=== PATIENT | male | born 1960 | race Caucasian/White ===

== ENCOUNTER 2021-01-21 18:13 | Inpatient (IN) | payer BC ==
[2021-01-21] MEDS ORDERED: Sodium Chloride 0.9% 1,000 ML IV SCH (19:45)
--- NOTE | 2021-01-21 20:59 | CR ---
Chest: Portable view of the chest was obtained. Comparison: No prior chest imaging is available. Patchy areas of increased density are seen within both lungs, worse on the left side. Heart size and mediastinum are within normal limits for portable technique. No acute osseous finding is appreciated. Impression: 1. Increased density on both sides of the chest, worse on the left side. These findings are most likely due to bilateral COVID pneumonia. Diagnostic code #3
[2021-01-21] MEDS ORDERED: methylPREDNISolone Sodium Succinate 125 MG/2 ML SDV IVPUSH ONE (21:49)
[2021-01-21] MEDS ORDERED: Azithromycin 500 MG in Sodium Chloride 0.9% 250 ML IV SCH (22:00)
[2021-01-21] MEDS ORDERED: cefTRIAXone 1 GM in Sodium Chloride 0.9% 100 ML IV SCH (22:00)
[2021-01-21] MEDS ORDERED: Sodium Chloride 0.9% 100 ML ONE (22:03)
--- NOTE | 2021-01-21 22:06 | EDM.PDOC ---
ED HPI GENERAL MEDICAL PROBLEM - General Chief Complaint: Respiratory Problem Stated Complaint: COVID + LOW OXYGEN,SOB Time Seen by Provider: 01/21/21 19:11 Source of Information: Reports: Patient History Limitations: Reports: No Limitations - History of Present Illness INITIAL COMMENTS - FREE TEXT/NARRATIVE: The patient tested positive for Covid by swab about 9 days ago. He has not had any troubling symptoms or further evaluation or treatment. He has had gradual worsening of shortness of breath and came to the emergency department today no fever had been noted. There are no significant risk factors. Patient is hypertensive. He did smoke cigarettes in the remote past. He apparently has some prostate issue but he is sure that it is not cancer. - Related Data Allergies Allergy/AdvReac Type Severity Reaction Status Date / Time No Known Allergies Allergy Verified 01/21/21 18:37 Home Meds: Home Meds FLUoxetine [PROzac] 20 mg PO DAILY 01/21/21 [History] Tamsulosin [Flomax] 1 tab PO DAILY 01/21/21 [History] amLODIPine [Norvasc] 10 mg PO DAILY 01/21/21 [History] atorvaSTATin [Lipitor] 1 tab PO DAILY 01/21/21 [History] Past Medical History Cardiovascular History: Reports: High Cholesterol, Hypertension Genitourinary History: Reports: Prostate Disorder - Infectious Disease History Infectious Disease History: Reports: Novel Coronavirus - Past Surgical History HEENT Surgical History: Reports: Naso-Sinus Surgery, Tonsillectomy GI Surgical History: Reports: Appendectomy Social & Family History - Tobacco Use Tobacco Use Status *Q: Current Every Day Tobacco User Years of Tobacco use: 40 Packs/Tins Daily: 0.5 Second Hand Smoke Exposure: No - Caffeine Use Caffeine Use: Reports: Coffee - Recreational Drug Use Recreational Drug Use: No ED ROS GENERAL - Review of Systems Review Of Systems: Comprehensive ROS is negative, except as noted in HPI. ED EXAM, GENERAL - Physical Exam Exam: See Below Free Text/Narrative:: Patient is alert and in no acute distress on exam. He does appear a bit wan however. Skin is warm and dry with normal turgor. Head normocephalic atraumatic. EOMI PERRLA. ENT grossly normal. Neck is supple without jugular venous distention. Lungs bilateral breath sounds which are a bit diminished and coarse. Heart is regular normal rate. Abdomen is soft and nontender. There is no peripheral edema cyanosis or clubbing of the digits. Neurologically the patient is grossly intact with fluent speech and no motor or sensory deficit. His mood and affect are normal. #1 Interpretation EKG Date: 01/21/21 Time: 19:40 Rate (Beats/Min): 81 [place]: Normal P-Wave: Present QRS: Normal ST-T: Other (flipped T waves in III, F V3 V4 and V5.) QT: Normal EKG Interpretation Comments: no acute ischemic change Course - Vital Signs Text/Narrative:: The patient is hypoxemic. Chest x-ray suggestive of Covid pneumonia. Discussed fully with patient. Admission is recommended. Patient readily agrees. Presented to Dr. Sandy the hospitalist. Patient is to be admitted and bridge orders are written. Solu-Medrol, Rocephin, Zithromax initiated in ER. Last Recorded V/S: Last Vital Signs Temp 36.3 C 01/21/21 18:34 Pulse 85 01/21/21 18:34 Resp 18 01/21/21 18:34 BP 150/80 H 01/21/21 18:34 Pulse Ox 90 L 01/21/21 20:13 - Orders/Labs/Meds Orders: Active Orders 24 hr Category Date Time Status EKG Documentation Completion [RC] STAT Care 01/21/21 19:33 Active Oxygen Therapy, ED [RC] ASDIRECTED Care 01/21/21 19:36 Active CULTURE BLOOD [BC] Stat Lab 01/21/21 20:04 Received CULTURE BLOOD [BC] Stat Lab 01/21/21 20:14 Received Azithromycin [Zithromax] 500 mg Med 01/21/21 22:00 Active Sodium Chloride 0.9% [Normal Saline (AdvBag)] 250 ml IV Q24H Sodium Chloride 0.9% [Normal Saline] 1,000 ml Med 01/21/21 19:45 Active IV ASDIRECTED cefTRIAXone [Rocephin] 1 gm Med 01/21/21 22:00 Active Sodium Chloride 0.9% [Normal Saline] 100 ml IV Q24H Blood Culture x2 Reflex Set [OM.PC] Stat Oth 01/21/21 19:33 Ordered Medication Orders Sodium Chloride (Normal Saline) 1,000 mls @ 100 mls/hr IV ASDIRECTED ANNABEL Last Admin: 01/21/21 19:52 Dose: 100 mls/hr Documented by: THANH Ceftriaxone Sodium 1 gm/ (Sodium Chloride) 100 mls @ 200 mls/hr IV Q24H ANNABEL Azithromycin 500 mg/ Sodium (Chloride) 250 mls @ 250 mls/hr IV Q24H ANNABEL Labs: Laboratory Tests 01/21/21 01/21/21 01/21/21 Range/Units 19:02 19:02 19:02 WBC 6.28 (4.23-9.07) K/mm3 RBC 5.12 (4.63-6.08) M/mm3 Hgb 14.3 (13.7-17.5) gm/dl Hct 42.6 (40.1-51.0) % MCV 83.2 (79.0-92.2) fl MCH 27.9 (25.7-32.2) pg MCHC 33.6 (32.2-35.5) g/dl RDW Std Deviation 39.7 (35.1-43.9) fL Plt Count 209 (163-337) K/mm3 MPV 9.6 (9.4-12.3) fl Neutrophils % (Manual) 79 H (40-60) % Band Neutrophils % 0 (0-10) % Lymphocytes % (Manual) 18 L (20-40) % Atypical Lymphs % 0 % Monocytes % (Manual) 3 (2-10) % Eosinophils % (Manual) 0 L (0.8-7.0) % Basophils % (Manual) 0 L (0.2-1.2) Platelet Estimate Adequate RBC Morph Comment Normal D-Dimer, Quantitative 0.51 H (0.19-0.50) mg/L Puncture Site ABG pH (7.35-7.45) ABG pCO2 (35.0-45.0) mmHg ABG pO2 (80.0-100.0) mmHg ABG HCO3 (22.0-26.0) meq/L ABG O2 Saturation (96.0-97.0) % ABG Base Excess (-2-2.0) Moses Test A-a Gradient mmHg O2 Delivery Device Oxygen Flow Rate FiO2 (21.00-100.00) % Sodium 140 (136-145) mEq/L Potassium 3.1 L (3.5-5.1) mEq/L Chloride 102 (98-107) mEq/L Carbon Dioxide 24 (21-32) mEq/L Anion Gap 17.1 H (5-15) BUN 22 H (7-18) mg/dL Creatinine 1.1 (0.7-1.3) mg/dL Est Cr Clr Drug Dosing 72.82 mL/min Estimated GFR (MDRD) > 60 (>60) mL/min BUN/Creatinine Ratio 20.0 H (14-18) Glucose 113 (80-115) mg/dL Calcium 8.7 (8.5-10.1) mg/dL Magnesium 2.0 (1.8-2.4) mg/dl Total Bilirubin 0.7 (0.2-1.0) mg/dL AST 75 H (15-37) U/L ALT 86 H (16-63) U/L Alkaline Phosphatase 51 (46-116) U/L Creatine Kinase 714 H (39-308) U/L Troponin I < 0.017 (0.00-0.056) ng/mL NT-Pro-B Natriuret Pep (0-125) pg/mL Total Protein 7.2 (6.4-8.2) g/dl Albumin 3.1 L (3.4-5.0) g/dl Globulin 4.1 gm/dL Albumin/Globulin Ratio 0.8 L (1-2) Lipase 82 (73-393) U/L TSH 3rd Generation 3.350 (0.358-3.74) uIU/mL Urine Color (Yellow) Urine Appearance (Clear) Urine pH (5.0-8.0) Ur Specific [place] (1.005-1.030) Urine Protein (Negative) Urine Glucose (UA) (Negative) Urine Ketones (Negative) Urine Occult Blood (Negative) Urine Nitrite (Negative) Urine Bilirubin (Negative) Urine Urobilinogen (0.2-1.0) Ur Leukocyte Esterase (Negative) U Hyaline Cast (Auto) (0-5) /lpf Urine RBC (0-5) /hpf Urine WBC (0-5) /hpf Urine WBC Clumps (NOT SEEN) /hpf Ur Squamous Epith Cells (0-5) /hpf Ur Transition Epith Cell (0-5) Urine Bacteria (FEW) /hpf Urine Mucus (FEW) /hpf SARS-CoV-2 RNA (BRUCE) (NEGATIVE) 01/21/21 01/21/21 01/21/21 Range/Units 19:02 19:45 20:05 WBC (4.23-9.07) K/mm3 RBC (4.63-6.08) M/mm3 Hgb (13.7-17.5) gm/dl Hct (40.1-51.0) % MCV (79.0-92.2) fl MCH (25.7-32.2) pg MCHC (32.2-35.5) g/dl RDW Std Deviation (35.1-43.9) fL Plt Count (163-337) K/mm3 MPV (9.4-12.3) fl Neutrophils % (Manual) (40-60) % Band Neutrophils % (0-10) % Lymphocytes % (Manual) (20-40) % Atypical Lymphs % % Monocytes % (Manual) (2-10) % Eosinophils % (Manual) (0.8-7.0) % Basophils % (Manual) (0.2-1.2) Platelet Estimate RBC Morph Comment D-Dimer, Quantitative (0.19-0.50) mg/L Puncture Site Lt radial ABG pH 7.47 H (7.35-7.45) ABG pCO2 32.5 L (35.0-45.0) mmHg ABG pO2 49.0 L (80.0-100.0) mmHg ABG HCO3 23.5 (22.0-26.0) meq/L ABG O2 Saturation 85.2 L (96.0-97.0) % ABG Base Excess 1.0 (-2-2.0) Moses Test Positive A-a Gradient 60 mmHg O2 Delivery Device Room air Oxygen Flow Rate 0.0 FiO2 21.00 (21.00-100.00) % Sodium (136-145) mEq/L Potassium (3.5-5.1) mEq/L Chloride (98-107) mEq/L Carbon Dioxide (21-32) mEq/L Anion Gap (5-15) BUN (7-18) mg/dL Creatinine (0.7-1.3) mg/dL Est Cr Clr Drug Dosing mL/min Estimated GFR (MDRD) (>60) mL/min BUN/Creatinine Ratio (14-18) Glucose (80-115) mg/dL Calcium (8.5-10.1) mg/dL Magnesium (1.8-2.4) mg/dl Total Bilirubin (0.2-1.0) mg/dL AST (15-37) U/L ALT (16-63) U/L Alkaline Phosphatase (46-116) U/L Creatine Kinase (39-308) U/L Troponin I (0.00-0.056) ng/mL NT-Pro-B Natriuret Pep 57 (0-125) pg/mL Total Protein (6.4-8.2) g/dl Albumin (3.4-5.0) g/dl Globulin gm/dL Albumin/Globulin Ratio (1-2) Lipase (73-393) U/L TSH 3rd Generation (0.358-3.74) uIU/mL Urine Color (Yellow) Urine Appearance (Clear) Urine pH (5.0-8.0) Ur Specific [place] (1.005-1.030) Urine Protein (Negative) Urine Glucose (UA) (Negative) Urine Ketones (Negative) Urine Occult Blood (Negative) Urine Nitrite (Negative) Urine Bilirubin (Negative) Urine Urobilinogen (0.2-1.0) Ur Leukocyte Esterase (Negative) U Hyaline Cast (Auto) (0-5) /lpf Urine RBC (0-5) /hpf Urine WBC (0-5) /hpf Urine WBC Clumps (NOT SEEN) /hpf Ur Squamous Epith Cells (0-5) /hpf Ur Transition Epith Cell (0-5) Urine Bacteria (FEW) /hpf Urine Mucus (FEW) /hpf SARS-CoV-2 RNA (BRUCE) Positive H (NEGATIVE) 01/21/21 Range/Units 20:26 WBC (4.23-9.07) K/mm3 RBC (4.63-6.08) M/mm3 Hgb (13.7-17.5) gm/dl Hct (40.1-51.0) % MCV (79.0-92.2) fl MCH (25.7-32.2) pg MCHC (32.2-35.5) g/dl RDW Std Deviation (35.1-43.9) fL Plt Count (163-337) K/mm3 MPV (9.4-12.3) fl Neutrophils % (Manual) (40-60) % Band Neutrophils % (0-10) % Lymphocytes % (Manual) (20-40) % Atypical Lymphs % % Monocytes % (Manual) (2-10) % Eosinophils % (Manual) (0.8-7.0) % Basophils % (Manual) (0.2-1.2) Platelet Estimate RBC Morph Comment D-Dimer, Quantitative (0.19-0.50) mg/L Puncture Site ABG pH (7.35-7.45) ABG pCO2 (35.0-45.0) mmHg ABG pO2 (80.0-100.0) mmHg ABG HCO3 (22.0-26.0) meq/L ABG O2 Saturation (96.0-97.0) % ABG Base Excess (-2-2.0) Moses Test A-a Gradient mmHg O2 Delivery Device Oxygen Flow Rate FiO2 (21.00-100.00) % Sodium (136-145) mEq/L Potassium (3.5-5.1) mEq/L Chloride (98-107) mEq/L Carbon Dioxide (21-32) mEq/L Anion Gap (5-15) BUN (7-18) mg/dL Creatinine (0.7-1.3) mg/dL Est Cr Clr Drug Dosing mL/min Estimated GFR (MDRD) (>60) mL/min BUN/Creatinine Ratio (14-18) Glucose (80-115) mg/dL Calcium (8.5-10.1) mg/dL Magnesium (1.8-2.4) mg/dl Total Bilirubin (0.2-1.0) mg/dL AST (15-37) U/L ALT (16-63) U/L Alkaline Phosphatase (46-116) U/L Creatine Kinase (39-308) U/L Troponin I (0.00-0.056) ng/mL NT-Pro-B Natriuret Pep (0-125) pg/mL Total Protein (6.4-8.2) g/dl Albumin (3.4-5.0) g/dl Globulin gm/dL Albumin/Globulin Ratio (1-2) Lipase (73-393) U/L TSH 3rd Generation (0.358-3.74) uIU/mL Urine Color Yellow (Yellow) Urine Appearance Clear (Clear) Urine pH 6.0 (5.0-8.0) Ur Specific [place] 1.020 (1.005-1.030) Urine Protein 1+ H (Negative) Urine Glucose (UA) Negative (Negative) Urine Ketones Trace H (Negative) Urine Occult Blood Negative (Negative) Urine Nitrite Negative (Negative) Urine Bilirubin Negative (Negative) Urine Urobilinogen 0.2 (0.2-1.0) Ur Leukocyte Esterase Negative (Negative) U Hyaline Cast (Auto) 10-20 H (0-5) /lpf Urine RBC 0-5 (0-5) /hpf Urine WBC 10-20 H (0-5) /hpf Urine WBC Clumps Rare (NOT SEEN) /hpf Ur Squamous Epith Cells 0-5 (0-5) /hpf Ur Transition Epith Cell 0-5 (0-5) Urine Bacteria Many H (FEW) /hpf Urine Mucus Many H (FEW) /hpf SARS-CoV-2 RNA (BRUCE) (NEGATIVE) Meds: Medications Generic Name Dose Route Start Last Admin Trade Name Freq PRN Reason Stop Dose Admin Sodium Chloride 1,000 mls @ 100 mls/hr 01/21/21 19:45 01/21/21 19:52 Normal Saline IV 100 mls/hr ASDIRECTED ANNABEL Administration Ceftriaxone Sodium 1 gm/ 100 mls @ 200 mls/hr 01/21/21 22:00 Sodium Chloride IV Q24H ANNABEL Azithromycin 500 mg/ Sodium 250 mls @ 250 mls/hr 01/21/21 22:00 Chloride IV Q24H ANNABEL Discontinued Medications Generic Name Dose Route Start Last Admin Trade Name Freq PRN Reason Stop Dose Admin Methylprednisolone Sodium Succinate 125 mg 01/21/21 21:49 Methylprednisolone Sodium Succinate 125 Mg/2 Ml Sdv IVPUSH 01/21/21 21:50 ONETIME ONE Departure - Departure Time of Disposition: 22:09 Disposition: Admitted As Inpatient 65 Condition: Fair Clinical Impression: Pneumonia due to COVID-19 virus - Discharge Information Referrals: Jack Olsen MD [Primary Care Provider] - Sepsis Event Note (ED) - Evaluation Sepsis Screening Result: No Definite Risk - Focused Exam Vital Signs: Vital Signs Temp Pulse Resp BP Pulse Ox Pulse Ox 01/21/21 20:13 90 L 01/21/21 18:34 36.3 C 85 18 150/80 H 88 L - My Orders Last 24 Hours: My Active Orders 01/21/21 19:33 EKG Documentation Completion [RC] STAT Blood Culture x2 Reflex Set [OM.PC] Stat 01/21/21 19:36 Oxygen Therapy, ED [] ASDIRECTED 01/21/21 19:45 Sodium Chloride 0.9% [Normal Saline] 1,000 ml IV ASDIRECTED 01/21/21 20:04 CULTURE BLOOD [BC] Stat 01/21/21 20:14 CULTURE BLOOD [BC] Stat 01/21/21 22:00 Azithromycin [Zithromax] 500 mg Sodium Chloride 0.9% [Normal Saline (AdvBag)] 250 ml IV Q24H cefTRIAXone [Rocephin] 1 gm Sodium Chloride 0.9% [Normal Saline] 100 ml IV Q24H - Assessment/Plan Last 24 Hours: My Active Orders 01/21/21 19:33 EKG Documentation Completion [] STAT Blood Culture x2 Reflex Set [OM.PC] Stat 01/21/21 19:36 Oxygen Therapy, ED [] ASDIRECTED 01/21/21 19:45 Sodium Chloride 0.9% [Normal Saline] 1,000 ml IV ASDIRECTED 01/21/21 20:04 CULTURE BLOOD [BC] Stat 01/21/21 20:14 CULTURE BLOOD [BC] Stat 01/21/21 22:00 Azithromycin [Zithromax] 500 mg Sodium Chloride 0.9% [Normal Saline (AdvBag)] 250 ml IV Q24H cefTRIAXone [Rocephin] 1 gm Sodium Chloride 0.9% [Normal Saline] 100 ml IV Q24H
[2021-01-21] MEDS: cefTRIAXone 1 GM AdvVial IV ONE (22:11)
[2021-01-21] MEDS ORDERED: Acetaminophen 325 MG Tab PO PRN (22:36)
[2021-01-21] MEDS ORDERED: Ondansetron 4 MG/2 ML SDV IV PRN (22:36)
[2021-01-21] MEDS ORDERED: REMDESIVIR 200 MG in Sodium Chloride 0.9% 250 ML IV ONE (22:38)
[2021-01-21] MEDS: Dexamethasone 4 MG Tab PO SCH (23:28)
[2021-01-21] MEDS: Famotidine 20 MG Tab PO SCH (23:29)
[2021-01-21] MEDS: Aspirin 325 MG Tab.EC PO SCH (23:29)
[2021-01-21] MEDS: Cholecalciferol (Vitamin D3) 5,000 UNIT Cap PO SCH (23:29)
--- NOTE | 2021-01-22 07:23 | PCM.HP.2 ---
H&P History of Present Illness - General Date of Service: 01/22/21 Admit Problem/Dx: Admission Diagnosis/Problem Admission Diagnosis/Problem Hypoxia Source of Information: Patient, Old Records, Provider, RN, RN Notes Reviewed History Limitations: Reports: No Limitations - History of Present Illness Initial Comments - Free Text/Narative: This is a 60-year-old male who presents to ED in the evening of 01/21/2021 with concerns over low oxygen saturations and shortness of breath. Patient is accompanied by his who is having similar symptoms. Per the patient he was tested for Covid approximately 9 days prior and was positive. Since that time he is developed worsening shortness of breath. Denies any recent fevers or risk factors. He is hypertensive. Does have a history of cigarette smoking in the past and some prior prostate problems but no prostate cancer. In the ED twelve-lead EKG is obtained showing a sinus rhythm at 81 bpm with T wave inversion in 3, aVF, and V3 through V5. There is no ischemic change noted. Temp is 36.3. Pulse 85. Respirations 18. Blood pressure 150/80. Pulse ox 90% on room air. Labs are obtained: WBC is 6.28. Hemoglobin 14.3. Platelet 209,000. Neutrophils are elevated 79%. There is no bandemia. Sodium is 140. Potassium is low at 3.1. Chloride 102. Carbon oxide 24. Anion gap is 17.1. BUN is 22. Creatinine 1.1. GFR greater than 60. Glucose 113. Calcium 8.7. Magnesium 2.0. Total bilirubin 0.7. AST is 75, ALT 86, alkaline phosphatase 51. CK is 714. Troponin less than 0.017. Protein 7.2. Albumin 3.1. Lipase 82. TSH is 3.350. proBNP is 57. UA is obtained and is negative however 1+ protein, 10-20 hyaline casts, 10-20 WBCs, rare WBC clumps, many bacteria, and many urine mucus are noted. ABGs obtained in the left radial with a pH of 7.47. PCO2 of 32.5. PO2 of 49.0. HCO3 is 23.5. O2 saturations 85.2. Base excess 1.0. A-a gradient is 60. This is obtained on room air. Patient is given 125 mg Solu-Medrol, 1 g Rocephin, 500 mg azithromycin in the ED. Chest x-ray is obtained and an increased density on both sides of the chest is noted worse on the left. Most likely due to bilateral Covid pneumonia. Patient subsequently admitted to the medical floor on telemetry for management of his COVID-19 pneumonia. He carries a history of HLD, HTN, prostate disorder. He is a full code. His PCP is Dr. Lovelace. . - Related Data Allergies/Adverse Reactions: Allergies Allergy/AdvReac Type Severity Reaction Status Date / Time No Known Allergies Allergy Verified 01/21/21 18:37 Home Medications: Home Meds FLUoxetine [PROzac] 20 mg PO DAILY 01/21/21 [History] Tamsulosin [Flomax] 1 tab PO DAILY 01/21/21 [History] amLODIPine [Norvasc] 10 mg PO DAILY 01/21/21 [History] atorvaSTATin [Lipitor] 1 tab PO DAILY 01/21/21 [History] Past Medical History Cardiovascular History: Reports: High Cholesterol, Hypertension Gastrointestinal History: Reports: None Genitourinary History: Reports: Prostate Disorder Psychiatric History: Reports: Anxiety - Infectious Disease History Infectious Disease History: Reports: Chicken Pox, Novel Coronavirus - Past Surgical History HEENT Surgical History: Reports: Naso-Sinus Surgery, Tonsillectomy GI Surgical History: Reports: Appendectomy Male Surgical History: Reports: None Social & Family History - Family History Family Medical History: No Pertinent Family History - Tobacco Use Tobacco Use Status *Q: Former Tobacco User Years of Tobacco use: 1 Packs/Tins Daily: 0.5 Used Tobacco, but Quit: Yes Month/Year Tobacco Last Used: 1979 Second Hand Smoke Exposure: No - Caffeine Use Caffeine Use: Reports: Coffee Caffeine Use Comment: 8-10 cups of coffe per day - Alcohol Use Days Per Week of Alcohol Use: 1 Number of Drinks Per Day: 3 Total Drinks Per Week: 3 Date of Last Drink: 12/31/20 Time of Last Drink: 21:00 - Recreational Drug Use Recreational Drug Use: No H&P Review of Systems - Review of Systems: Review Of Systems: See Below General: Reports: Malaise, Weakness, Fatigue. Denies: Fever, Chills HEENT: Reports: No Symptoms. Denies: Headaches, Sore Throat Pulmonary: Reports: Shortness of Breath. Denies: Wheezing, Pleuritic Chest Pain, Cough, Sputum Cardiovascular: Reports: Dyspnea on Exertion. Denies: Chest Pain, Palpitations, Edema, Lightheadedness Gastrointestinal: Reports: No Symptoms. Denies: Abdominal Pain, Constipation, Diarrhea, Nausea, Vomiting Genitourinary: Reports: No Symptoms. Denies: Pain Musculoskeletal: Reports: No Symptoms Skin: Reports: No Symptoms. Denies: Cyanosis Psychiatric: Reports: No Symptoms. Denies: Confusion Neurological: Reports: No Symptoms. Denies: Pre-Existing Deficit, Difficulty Wa lking, Gait Disturbance Hematologic/Lymphatic: Reports: No Symptoms Immunologic: Reports: No Symptoms Exam - Exam Exam: See Below - Vital Signs Vital Signs: Last Vital Signs Temp 97.7 F 01/22/21 03:36 Pulse 72 01/22/21 03:36 Resp 18 01/22/21 03:36 BP 113/65 01/22/21 03:36 Pulse Ox 93 L 01/22/21 06:27 Weight: 225 lb 3.2 oz - Exam Quality Assessment: Supplemental Oxygen (4L), DVT Prophylaxis. No: Urinary Catheter General: Alert, Oriented, Cooperative. No: Mild Distress HEENT: Conjunctiva Clear, EACs Clear, Mucosa Moist & [place], Posterior Pharynx Clear Neck: Supple, Trachea Midline Lungs: Normal Respiratory Effort, Decreased Breath Sounds Cardiovascular: Regular Rate, Regular Rhythm GI/Abdominal Exam: Normal Bowel Sounds, Soft, Non-Tender, No Distention (Male) Exam: Deferred Rectal (Males) Exam: Deferred Back Exam: Normal Inspection, Full Range of Motion Extremities: Normal Inspection, Normal Range of Motion, Non-Tender, No Pedal Edema, Normal Capillary Refill Peripheral Pulses: 2+: Radial (L), Radial (R), Dorsalis Pedis (L), Dorsalis Pedis (R) Skin: Warm, Dry, Intact Neurological: Cranial Nerves Intact (Grossly) Neuro Extensive - Mental Status: Alert, Oriented x3, Normal Mood/Affect - Patient Data Lab Results Last 24 hrs: Laboratory Results - last 24 hr 01/21/21 01/21/21 01/21/21 Range/Units 19:02 19:02 19:02 WBC 6.28 (4.23-9.07) K/mm3 RBC 5.12 (4.63-6.08) M/mm3 Hgb 14.3 (13.7-17.5) gm/dl Hct 42.6 (40.1-51.0) % MCV 83.2 (79.0-92.2) fl MCH 27.9 (25.7-32.2) pg MCHC 33.6 (32.2-35.5) g/dl RDW Std Deviation 39.7 (35.1-43.9) fL Plt Count 209 (163-337) K/mm3 MPV 9.6 (9.4-12.3) fl Neutrophils % (Manual) 79 H (40-60) % Band Neutrophils % 0 (0-10) % Lymphocytes % (Manual) 18 L (20-40) % Atypical Lymphs % 0 % Monocytes % (Manual) 3 (2-10) % Eosinophils % (Manual) 0 L (0.8-7.0) % Basophils % (Manual) 0 L (0.2-1.2) Platelet Estimate Adequate RBC Morph Comment Normal D-Dimer, Quantitative 0.51 H (0.19-0.50) mg/L Puncture Site ABG pH (7.35-7.45) ABG pCO2 (35.0-45.0) mmHg ABG pO2 (80.0-100.0) mmHg ABG HCO3 (22.0-26.0) meq/L ABG O2 Saturation (96.0-97.0) % ABG Base Excess (-2-2.0) Moses Test A-a Gradient mmHg O2 Delivery Device Oxygen Flow Rate FiO2 (21.00-100.00) % Sodium 140 (136-145) mEq/L Potassium 3.1 L (3.5-5.1) mEq/L Chloride 102 (98-107) mEq/L Carbon Dioxide 24 (21-32) mEq/L Anion Gap 17.1 H (5-15) BUN 22 H (7-18) mg/dL Creatinine 1.1 (0.7-1.3) mg/dL Est Cr Clr Drug Dosing 72.82 mL/min Estimated GFR (MDRD) > 60 (>60) mL/min BUN/Creatinine Ratio 20.0 H (14-18) Glucose 113 (80-115) mg/dL Calcium 8.7 (8.5-10.1) mg/dL Magnesium 2.0 (1.8-2.4) mg/dl Total Bilirubin 0.7 (0.2-1.0) mg/dL AST 75 H (15-37) U/L ALT 86 H (16-63) U/L Alkaline Phosphatase 51 (46-116) U/L Creatine Kinase 714 H (39-308) U/L Troponin I < 0.017 (0.00-0.056) ng/mL NT-Pro-B Natriuret Pep (0-125) pg/mL Total Protein 7.2 (6.4-8.2) g/dl Albumin 3.1 L (3.4-5.0) g/dl Globulin 4.1 gm/dL Albumin/Globulin Ratio 0.8 L (1-2) Lipase 82 (73-393) U/L TSH 3rd Generation 3.350 (0.358-3.74) uIU/mL Urine Color (Yellow) Urine Appearance (Clear) Urine pH (5.0-8.0) Ur Specific [place] (1.005-1.030) Urine Protein (Negative) Urine Glucose (UA) (Negative) Urine Ketones (Negative) Urine Occult Blood (Negative) Urine Nitrite (Negative) Urine Bilirubin (Negative) Urine Urobilinogen (0.2-1.0) Ur Leukocyte Esterase (Negative) U Hyaline Cast (Auto) (0-5) /lpf Urine RBC (0-5) /hpf Urine WBC (0-5) /hpf Urine WBC Clumps (NOT SEEN) /hpf Ur Squamous Epith Cells (0-5) /hpf Ur Transition Epith Cell (0-5) Urine Bacteria (FEW) /hpf Urine Mucus (FEW) /hpf SARS-CoV-2 RNA (BRUCE) (NEGATIVE) 01/21/21 01/21/21 01/21/21 Range/Units 19:02 19:45 20:05 WBC (4.23-9.07) K/mm3 RBC (4.63-6.08) M/mm3 Hgb (13.7-17.5) gm/dl Hct (40.1-51.0) % MCV (79.0-92.2) fl MCH (25.7-32.2) pg MCHC (32.2-35.5) g/dl RDW Std Deviation (35.1-43.9) fL Plt Count (163-337) K/mm3 MPV (9.4-12.3) fl Neutrophils % (Manual) (40-60) % Band Neutrophils % (0-10) % Lymphocytes % (Manual) (20-40) % Atypical Lymphs % % Monocytes % (Manual) (2-10) % Eosinophils % (Manual) (0.8-7.0) % Basophils % (Manual) (0.2-1.2) Platelet Estimate RBC Morph Comment D-Dimer, Quantitative (0.19-0.50) mg/L Puncture Site Lt radial ABG pH 7.47 H (7.35-7.45) ABG pCO2 32.5 L (35.0-45.0) mmHg ABG pO2 49.0 L (80.0-100.0) mmHg ABG HCO3 23.5 (22.0-26.0) meq/L ABG O2 Saturation 85.2 L (96.0-97.0) % ABG Base Excess 1.0 (-2-2.0) Moses Test Positive A-a Gradient 60 mmHg O2 Delivery Device Room air Oxygen Flow Rate 0.0 FiO2 21.00 (21.00-100.00) % Sodium (136-145) mEq/L Potassium (3.5-5.1) mEq/L Chloride (98-107) mEq/L Carbon Dioxide (21-32) mEq/L Anion Gap (5-15) BUN (7-18) mg/dL Creatinine (0.7-1.3) mg/dL Est Cr Clr Drug Dosing mL/min Estimated GFR (MDRD) (>60) mL/min BUN/Creatinine Ratio (14-18) Glucose (80-115) mg/dL Calcium (8.5-10.1) mg/dL Magnesium (1.8-2.4) mg/dl Total Bilirubin (0.2-1.0) mg/dL AST (15-37) U/L ALT (16-63) U/L Alkaline Phosphatase (46-116) U/L Creatine Kinase (39-308) U/L Troponin I (0.00-0.056) ng/mL NT-Pro-B Natriuret Pep 57 (0-125) pg/mL Total Protein (6.4-8.2) g/dl Albumin (3.4-5.0) g/dl Globulin gm/dL Albumin/Globulin Ratio (1-2) Lipase (73-393) U/L TSH 3rd Generation (0.358-3.74) uIU/mL Urine Color (Yellow) Urine Appearance (Clear) Urine pH (5.0-8.0) Ur Specific [place] (1.005-1.030) Urine Protein (Negative) Urine Glucose (UA) (Negative) Urine Ketones (Negative) Urine Occult Blood (Negative) Urine Nitrite (Negative) Urine Bilirubin (Negative) Urine Urobilinogen (0.2-1.0) Ur Leukocyte Esterase (Negative) U Hyaline Cast (Auto) (0-5) /lpf Urine RBC (0-5) /hpf Urine WBC (0-5) /hpf Urine WBC Clumps (NOT SEEN) /hpf Ur Squamous Epith Cells (0-5) /hpf Ur Transition Epith Cell (0-5) Urine Bacteria (FEW) /hpf Urine Mucus (FEW) /hpf SARS-CoV-2 RNA (BRUCE) Positive H (NEGATIVE) 01/21/21 Range/Units 20:26 WBC (4.23-9.07) K/mm3 RBC (4.63-6.08) M/mm3 Hgb (13.7-17.5) gm/dl Hct (40.1-51.0) % MCV (79.0-92.2) fl MCH (25.7-32.2) pg MCHC (32.2-35.5) g/dl RDW Std Deviation (35.1-43.9) fL Plt Count (163-337) K/mm3 MPV (9.4-12.3) fl Neutrophils % (Manual) (40-60) % Band Neutrophils % (0-10) % Lymphocytes % (Manual) (20-40) % Atypical Lymphs % % Monocytes % (Manual) (2-10) % Eosinophils % (Manual) (0.8-7.0) % Basophils % (Manual) (0.2-1.2) Platelet Estimate RBC Morph Comment D-Dimer, Quantitative (0.19-0.50) mg/L Puncture Site ABG pH (7.35-7.45) ABG pCO2 (35.0-45.0) mmHg ABG pO2 (80.0-100.0) mmHg ABG HCO3 (22.0-26.0) meq/L ABG O2 Saturation (96.0-97.0) % ABG Base Excess (-2-2.0) Moses Test A-a Gradient mmHg O2 Delivery Device Oxygen Flow Rate FiO2 (21.00-100.00) % Sodium (136-145) mEq/L Potassium (3.5-5.1) mEq/L Chloride (98-107) mEq/L Carbon Dioxide (21-32) mEq/L Anion Gap (5-15) BUN (7-18) mg/dL Creatinine (0.7-1.3) mg/dL Est Cr Clr Drug Dosing mL/min Estimated GFR (MDRD) (>60) mL/min BUN/Creatinine Ratio (14-18) Glucose (80-115) mg/dL Calcium (8.5-10.1) mg/dL Magnesium (1.8-2.4) mg/dl Total Bilirubin (0.2-1.0) mg/dL AST (15-37) U/L ALT (16-63) U/L Alkaline Phosphatase (46-116) U/L Creatine Kinase (39-308) U/L Troponin I (0.00-0.056) ng/mL NT-Pro-B Natriuret Pep (0-125) pg/mL Total Protein (6.4-8.2) g/dl Albumin (3.4-5.0) g/dl Globulin gm/dL Albumin/Globulin Ratio (1-2) Lipase (73-393) U/L TSH 3rd Generation (0.358-3.74) uIU/mL Urine Color Yellow (Yellow) Urine Appearance Clear (Clear) Urine pH 6.0 (5.0-8.0) Ur Specific [place] 1.020 (1.005-1.030) Urine Protein 1+ H (Negative) Urine Glucose (UA) Negative (Negative) Urine Ketones Trace H (Negative) Urine Occult Blood Negative (Negative) Urine Nitrite Negative (Negative) Urine Bilirubin Negative (Negative) Urine Urobilinogen 0.2 (0.2-1.0) Ur Leukocyte Esterase Negative (Negative) U Hyaline Cast (Auto) 10-20 H (0-5) /lpf Urine RBC 0-5 (0-5) /hpf Urine WBC 10-20 H (0-5) /hpf Urine WBC Clumps Rare (NOT SEEN) /hpf Ur Squamous Epith Cells 0-5 (0-5) /hpf Ur Transition Epith Cell 0-5 (0-5) Urine Bacteria Many H (FEW) /hpf Urine Mucus Many H (FEW) /hpf SARS-CoV-2 RNA (BRUCE) (NEGATIVE) Result Diagrams: 01/22/21 06:49 01/22/21 06:49 Sepsis Event Note - Evaluation Sepsis Screening Result: No Definite Risk - Focused Exam Vital Signs: Vital Signs Temp Temp Pulse Pulse Resp BP BP 01/22/21 06:27 01/22/21 03:36 97.7 F 72 18 113/65 01/21/21 23:00 19 01/21/21 22:56 17 01/21/21 22:51 97.9 F 83 20 148/73 H 01/21/21 22:16 98.2 F 81 20 118/62 01/21/21 20:13 Pulse Ox Pulse Ox 01/22/21 06:27 93 L 01/22/21 03:36 96 01/21/21 23:00 01/21/21 22:56 01/21/21 22:51 92 L 01/21/21 22:16 91 L 01/21/21 20:13 90 L - Problem List (1) Hypoxia SNOMED Code(s): 797420195 ICD Code: R09.02 - HYPOXEMIA Status: Acute Priority: High Current Visit: Yes (2) Pneumonia due to COVID-19 virus SNOMED Code(s): 892252453934003744 ICD Code: U07.1 - COVID-19; J12.82 - PNEUMONIA DUE TO CORONAVIRUS DISEASE 2019 Status: Acute Priority: High Current Visit: Yes (3) HTN (hypertension) SNOMED Code(s): 36348436 ICD Code: I10 - ESSENTIAL (PRIMARY) HYPERTENSION Status: Chronic Priority: Medium Current Visit: No Qualifiers: Hypertension type: unspecified Qualified Code(s): I10 - Essential (primary) hypertension (4) HLD (hyperlipidemia) SNOMED Code(s): 91123863 ICD Code: E78.5 - HYPERLIPIDEMIA, UNSPECIFIED Status: Chronic Priority: Low Current Visit: No Qualifiers: Hyperlipidemia type: unspecified Qualified Code(s): E78.5 - Hyperlipidemia, unspecified (5) Prostate disorder SNOMED Code(s): 98730630 ICD Code: N42.9 - DISORDER OF PROSTATE, UNSPECIFIED Status: Chronic Tamie ority: Low Current Visit: No (6) Former smoker SNOMED Code(s): 5347912 ICD Code: Z87.891 - PERSONAL HISTORY OF NICOTINE DEPENDENCE Status: Chronic Priority: Low Current Visit: No (7) Asymptomatic bacteriuria SNOMED Code(s): 948138045 ICD Code: R82.71 - BACTERIURIA Status: Acute Priority: Medium Current Visit: Yes Problem List Initiated/Reviewed/Updated: Yes Orders Last 24hrs: Active Orders 24 hr Category Date Time Status Admission Status [Patient Status] [ADT] Routine ADT 01/21/21 22:05 Active Cardiac Monitoring [RC] . DIRECTED Care 01/21/21 22:38 Active Nurse Communication: Isolation [RC] BID Care 01/21/21 22:39 Active Oxygen Therapy [RC] PRN Care 01/21/21 22:36 Active Positioning, Patient [RC] BID Care 01/21/21 22:38 Active RT Chest Physiotherapy [RC] ASDIRECTED Care 01/21/21 22:40 Active RT Incentive Spirometry [RC] ASDIRECTED Care 01/21/21 22:38 Active Up ad Blank [RC] BID Care 01/21/21 22:36 Active VTE/DVT Education [RC] DAILY Care 01/21/21 22:36 Active Vital Signs [RC] Q4HR Care 01/21/21 22:36 Active Regular Diet [DIET] Diet 01/22/21 Breakfast Active C-REACTIVE PROTEIN [CHEM] AM Lab 01/22/21 06:49 Received C-REACTIVE PROTEIN [CHEM] AM Lab 01/23/21 05:11 Ordered C-REACTIVE PROTEIN [CHEM] AM Lab 01/24/21 05:11 Ordered C-REACTIVE PROTEIN [CHEM] AM Lab 01/25/21 05:11 Ordered C-REACTIVE PROTEIN [CHEM] AM Lab 01/26/21 05:11 Ordered C-REACTIVE PROTEIN [CHEM] AM Lab 01/27/21 05:11 Ordered CBC WITH AUTO DIFF [HEME] AM Lab 01/22/21 06:49 Received CBC WITH AUTO DIFF [HEME] AM Lab 01/23/21 05:11 Ordered CBC WITH AUTO DIFF [HEME] AM Lab 01/24/21 05:11 Ordered CBC WITH AUTO DIFF [HEME] AM Lab 01/25/21 05:11 Ordered CBC WITH AUTO DIFF [HEME] AM Lab 01/26/21 05:11 Ordered CBC WITH AUTO DIFF [HEME] AM Lab 01/27/21 05:11 Ordered CMP [COMPREHENSIVE METABOLIC PN,CMP] [CHEM] AM Lab 01/22/21 06:49 Received CMP [COMPREHENSIVE METABOLIC PN,CMP] [CHEM] AM Lab 01/23/21 05:11 Ordered CMP [COMPREHENSIVE METABOLIC PN,CMP] [CHEM] AM Lab 01/24/21 05:11 Ordered CMP [COMPREHENSIVE METABOLIC PN,CMP] [CHEM] AM Lab 01/25/21 05:11 Ordered CMP [COMPREHENSIVE METABOLIC PN,CMP] [CHEM] AM Lab 01/26/21 05:11 Ordered CMP [COMPREHENSIVE METABOLIC PN,CMP] [CHEM] AM Lab 01/27/21 05:11 Ordered CULTURE BLOOD [BC] Stat Lab 01/21/21 20:04 Received CULTURE BLOOD [BC] Stat Lab 01/21/21 20:14 Received DD [D-DIMER QUANTITATIVE] [COAG] AM Lab 01/22/21 06:49 Received DD [D-DIMER QUANTITATIVE] [COAG] AM Lab 01/23/21 05:11 Ordered DD [D-DIMER QUANTITATIVE] [COAG] AM Lab 01/24/21 05:11 Ordered DD [D-DIMER QUANTITATIVE] [COAG] AM Lab 01/25/21 05:11 Ordered DD [D-DIMER QUANTITATIVE] [COAG] AM Lab 01/26/21 05:11 Ordered DD [D-DIMER QUANTITATIVE] [COAG] AM Lab 01/27/21 05:11 Ordered MAGNESIUM [CHEM] AM Lab 01/22/21 06:49 Received MAGNESIUM [CHEM] AM Lab 01/23/21 05:11 Ordered MAGNESIUM [CHEM] AM Lab 01/24/21 05:11 Ordered MAGNESIUM [CHEM] AM Lab 01/25/21 05:11 Ordered MAGNESIUM [CHEM] AM Lab 01/26/21 05:11 Ordered MAGNESIUM [CHEM] AM Lab 01/27/21 05:11 Ordered PHOSPHORUS [CHEM] AM Lab 01/22/21 06:49 Received PHOSPHORUS [CHEM] AM Lab 01/23/21 05:11 Ordered PHOSPHORUS [CHEM] AM Lab 01/24/21 05:11 Ordered PHOSPHORUS [CHEM] AM Lab 01/25/21 05:11 Ordered PHOSPHORUS [CHEM] AM Lab 01/26/21 05:11 Ordered PHOSPHORUS [CHEM] AM Lab 01/27/21 05:11 Ordered Acetaminophen [TylenoL] Med 01/21/21 22:36 Active 650 mg PO Q4H PRN Aspirin [Ecotrin] Med 01/21/21 22:45 Active 325 mg PO DAILY Azithromycin [Zithromax] 500 mg Med 01/21/21 22:00 Active Sodium Chloride 0.9% [Normal Saline (AdvBag)] 250 ml IV Q24H Cholecalciferol (Vitamin D3) [Vitamin D3] Med 01/21/21 22:45 Active 5,000 unit PO DAILY Enoxaparin [Lovenox] Med 01/22/21 09:00 Active 40 mg SUBCUT DAILY FLUoxetine [PROzac] Med 01/22/21 09:00 Active 20 mg PO DAILY Famotidine [Pepcid] Med 01/21/21 22:45 Active 20 mg PO BID Melatonin Med 01/22/21 21:00 Active 9 mg PO BEDTIME Ondansetron [Zofran] Med 01/21/21 22:36 Active 4 mg IV Q4H PRN Remdesivir 100 mg Med 01/22/21 21:00 Active Sodium Chloride 0.9% [Normal Saline] 100 ml IV BEDTIME Simvastatin [Zocor] Med 01/22/21 21:00 Active 10 mg PO BEDTIME Sodium Chloride 0.9% [Normal Saline] 1,000 ml Med 01/21/21 19:45 Active IV ASDIRECTED Tamsulosin [Flomax] Med 01/22/21 09:00 Active 0.4 mg PO DAILY Zinc Sulfate [Zincate] Med 01/22/21 09:00 Active 220 mg PO DAILY amLODIPine [Norvasc] Med 01/22/21 09:00 Active 10 mg PO DAILY cefTRIAXone [Rocephin] 1 gm Med 01/21/21 22:00 Active Sodium Chloride 0.9% [Normal Saline] 100 ml IV Q24H dexAMETHasone Med 01/21/21 22:45 Active 6 mg PO DAILY Blood Culture x2 Reflex Set [OM.PC] Stat Oth 01/21/21 19:33 Ordered Isolation [COMM] Stat Oth 01/21/21 22:38 Ordered Pulse Oximetry Continuous Monitoring [OM.PC] Routine Oth 01/22/21 04:27 Active Resuscitation Status Routine Resus Stat 01/21/21 22:36 Ordered Medication Orders Acetaminophen (Acetaminophen 325 Mg Tab) 650 mg PO Q4H PRN PRN Reason: Pain (Mild 1-3)/fever Amlodipine Besylate (Amlodipine 5 Mg Tab) 10 mg PO DAILY [facility] Aspirin (Aspirin 325 Mg Tab.Ec) 325 mg PO DAILY [facility] Last Admin: 01/21/21 23:29 Dose: 325 mg Documented by: LEO Cholecalciferol (Cholecalciferol (Vitamin D3) 5,000 Unit Cap) 5,000 unit PO DAILY [facility] Last Admin: 01/21/21 23:29 Dose: 5,000 unit Documented by: LEO Dexamethasone (Dexamethasone 4 Mg Tab) 6 mg PO DAILY [facility] Stop: 01/30/21 09:01 Last Admin: 01/21/21 23:28 Dose: 6 mg Documented by: LEO Enoxaparin Sodium (Enoxaparin 40 Mg/0.4 Ml Syringe) 40 mg SUBCUT DAILY [facility] Famotidine (Famotidine 20 Mg Tab) 20 mg PO BID [facility] Last Admin: 01/21/21 23:29 Dose: 20 mg Documented by: LEO Fluoxetine HCl (Fluoxetine 20 Mg Cap) 20 mg PO DAILY [facility] Sodium Chloride (Normal Saline) 1,000 mls @ 100 mls/hr IV ASDIRECTED [facility] Last Admin: 01/21/21 19:52 Dose: 100 mls/hr Documented by: THANH Ceftriaxone Sodium 1 gm/ (Sodium Chloride) 100 mls @ 200 mls/hr IV Q24H [facility] Last Admin: 01/21/21 22:12 Dose: 200 mls/hr Documented by: THANH Azithromycin 500 mg/ Sodium (Chloride) 250 mls @ 250 mls/hr IV Q24H [facility] Last Admin: 01/21/21 23:20 Dose: 250 mls/hr Documented by: LEO Remdesivir 100 mg/ Sodium (Chloride) 100 mls @ 100 mls/hr IV BEDTIME [facility] Stop: 01/25/21 21:59 Melatonin (Melatonin 3 Mg Tab) 9 mg PO BEDTIME [facility] Ondansetron HCl (Ondansetron 4 Mg/2 Ml Sdv) 4 mg IV Q4H PRN PRN Reason: Nausea/Vomiting Last Admin: 01/21/21 23:27 Dose: 4 mg Documented by: LEO Simvastatin (Simvastatin 10 Mg Tab) 10 mg PO BEDTIME [facility] Tamsulosin HCl (Tamsulosin 0.4 Mg Cap.Er) 0.4 mg PO DAILY [facility] Zinc Sulfate (Zinc Sulfate 220 Mg Cap) 220 mg PO DAILY [facility] Assessment/Plan Comment:: Assessment - 01/22/21 (admitted late 01/21/21) * 60-year-old male presents to our ED with worsening Covid symptoms. * Lead diagnosed with Covid 9 days ago and has had worsening shortness of breath since then * History of HTN, HLD, prostate disorder. Is a former smoker. * Twelve-lead EKG shows sinus rhythm at 81 bpm with T wave inversion in 3, aVF, V3 through V5. * Chest x-ray shows increased density on both sides of the chest worse on left compatible with bilateral Covid pneumonia. * Labs in ED and on floor: * WBC 6.28-->4.34 * Hemoglobin 14.3-->14.4 * Platelet 209,000-->224,000 * Neutrophils 79% but no bandemia-->85% * D-dimer 0.51-->0.48 * Sodium 140-->143 * Potassium 3.1-->4.2 * Chloride 102-->106 * Carbon dioxide 24-->27 * Anion gap 17.1-->14.2 * BUN 22-->17, creatinine 1.1-->1.0, GFR greater than 60--> Greater than 60 * Glucose 113-->174 * Calcium 8.7-->8.5 * Magnesium 2.0-->2.4 * Total bilirubin 0.7-->0.4 * AST 75-->63, ALT 86-->81, alkaline phosphatase 51-->41 * CK 714 * Troponin less than 0.017 * Albumin 3.1-->2.9 * CRP 11.6 * Lipase 82 * TSH 3.350 * proBNP 57 * UA negative however trace ketones, 10-20 hyaline casts, 10-20 WBCs, rare WBC clumps, many bacteria and many mucus noted * SARS-CoV-2 RNA positive * ABG obtained in left radial: pH 7.47, PCO2 32.5, PO2 49.0, HCO3 of 23.5, O2 saturation 85.2, base excess 1.0, A-a gradient 60, obtained on room air. * Patient given 125 mg Solu-Medrol, Rocephin 1 g, 500 mg azithromycin in ED. * Subsequently admitted to the medical floor inpatient with telemetry for management of COVID-19 pneumonia. PLAN Hypoxia Pneumonia due to COVID-19 virus Former smoker * O2 as needed - goal saturations 88-95% * Azithromycin 500mg - Day 2/ * Rocephin 2gm - Day 11/27 * Remdisivir - day 11/27 * Dexamethasone 6mg - Day 12/02 * IS/Acapella * Prone whenever able * Ambulate * IS/Acapella * RT consultation * Albuterol/duonebs * Repeat CXR as indicated * Daily labs as ordered * Will hold off PT/OT for now * Daily ASA * Vitamin D supplementation * Zinc supplementation * Melatonin at bedtime * Await blood cultures Asymptomatic bacteriuria * No treatment at this time * Already receiving abx for Covid-19 as above. HTN (hypertension) HLD (hyperlipidemia) Prostate disorder * No acute concerns * Monitor vital signs * Home medications as ordered Code Status: Full Code PCP: Dr. Olsen DVT Prophylaxis: Lovenox Social: Patient resides with who is also COVID-19 positive and hospitalized Disposition: Patient admitted for management of COVID-19. LOS anticipated at least 5 days for COVID treatment. LOS >96HRs for COVID-19 treatment. - Mortality Measure Prognosis:: Good
[2021-01-22] MEDS: Enoxaparin 40 MG/0.4 ML Syringe SUBCUT SCH (08:18)
[2021-01-22] MEDS: Famotidine 20 MG Tab PO SCH ×2 (08:19→21:28)
[2021-01-22] MEDS: Tamsulosin 0.4 MG Cap.ER PO SCH (08:19)
[2021-01-22] MEDS: FLUoxetine 20 MG Cap PO SCH (08:19)
[2021-01-22] MEDS: Aspirin 325 MG Tab.EC PO SCH (08:19)
[2021-01-22] MEDS: Dexamethasone 4 MG Tab PO SCH (08:19)
[2021-01-22] MEDS: Zinc Sulfate 220 MG Cap PO SCH (08:19)
[2021-01-22] MEDS: Cholecalciferol (Vitamin D3) 5,000 UNIT Cap PO SCH (08:19)
[2021-01-22] MEDS ORDERED: amLODIPine 5 MG Tab PO SCH (09:00)
[2021-01-22] MEDS ORDERED: Non-Formulary Medication 1 Each (Atorvastatin 10 MG Tablet) PO SCH (09:00)
[2021-01-22] MEDS ORDERED: Albuterol/Ipratropium 3.0-0.5 MG/3 ML Neb Soln NEB PRN (09:41)
[2021-01-22] MEDS ORDERED: Magnesium Hydroxide 400 MG/5 ML Susp 30 ML Cup PO PRN (09:41)
[2021-01-22] MEDS ORDERED: Docusate Sodium 100 MG Cap PO PRN (09:41)
[2021-01-22] MEDS: Albuterol 6.7 GM Inhaler INH PRN ×3 (09:47→20:04)
[2021-01-22] MEDS: atorvaSTATin 20 MG Tab PO SCH (16:27)
[2021-01-22] MEDS ORDERED: Simvastatin 10 MG Tab PO SCH (21:00)
[2021-01-22] MEDS: Melatonin 3 MG Tab PO SCH (21:27)
[2021-01-22] MEDS: cefTRIAXone 2 GM in Sodium Chloride 0.9% 100 ML IV SCH (21:28)
[2021-01-22] MEDS: REMDESIVIR 100 MG in Sodium Chloride 0.9% 100 ML IV SCH (21:28)
[2021-01-22] MEDS: Azithromycin 500 MG in Sodium Chloride 0.9% 250 ML IV SCH (21:29)
[2021-01-22] MEDS ORDERED: cefTRIAXone 1 GM in Sodium Chloride 0.9% 100 ML IV SCH (22:00)
[2021-01-23] MEDS: Dexamethasone 4 MG Tab PO SCH (08:16)
[2021-01-23] MEDS: Enoxaparin 40 MG/0.4 ML Syringe SUBCUT SCH (08:16)
[2021-01-23] MEDS: Tamsulosin 0.4 MG Cap.ER PO SCH (08:17)
[2021-01-23] MEDS: Famotidine 20 MG Tab PO SCH ×2 (08:17→21:28)
[2021-01-23] MEDS: Cholecalciferol (Vitamin D3) 5,000 UNIT Cap PO SCH (08:17)
[2021-01-23] MEDS: FLUoxetine 20 MG Cap PO SCH (08:17)
[2021-01-23] MEDS: Aspirin 325 MG Tab.EC PO SCH (08:17)
[2021-01-23] MEDS: Zinc Sulfate 220 MG Cap PO SCH (08:17)
[2021-01-23] MEDS: amLODIPine 10 MG Tab PO SCH (08:17)
[2021-01-23] MEDS: atorvaSTATin 20 MG Tab PO SCH (08:17)
--- NOTE | 2021-01-23 14:46 | PCM.PN ---
- General Info Date of Service: 01/23/21 Admission Dx/Problem (Free Text): Admission Diagnosis/Problem Admission Diagnosis/Problem Hypoxia Subjective Update: Patient continues to have difficulty holding his oxygen saturations with movement. He states he does not feel much worse and he is trying to prone. Functional Status: Reports: Pain Controlled - Review of Systems General: Reports: No Symptoms HEENT: Reports: No Symptoms Pulmonary: Reports: Shortness of Breath Cardiovascular: Reports: No Symptoms Gastrointestinal: Reports: No Symptoms Musculoskeletal: Reports: No Symptoms - Patient Data Vitals - Most Recent: Last Vital Signs Temp 97.5 F 01/23/21 11:44 Pulse 79 01/23/21 11:44 Resp 20 01/23/21 11:44 BP 118/62 01/23/21 11:44 Pulse Ox 98 01/23/21 14:12 Weight - Most Recent: 224 lb 4.8 oz I&O - Last 24 Hours: Intake & Output 01/22/21 01/23/21 01/23/21 22:59 06:59 14:59 Intake Total 1460 1050 660 Output Total 900 675 Balance 560 375 660 Lab Results Last 24 Hours: Laboratory Results - last 24 hr 01/23/21 01/23/21 01/23/21 Range/Units 05:10 05:10 05:10 WBC 9.68 H (4.23-9.07) K/mm3 RBC 4.77 (4.63-6.08) M/mm3 Hgb 13.5 L (13.7-17.5) gm/dl Hct 40.5 (40.1-51.0) % MCV 84.9 (79.0-92.2) fl MCH 28.3 (25.7-32.2) pg MCHC 33.3 (32.2-35.5) g/dl RDW Std Deviation 41.8 (35.1-43.9) fL Plt Count 269 (163-337) K/mm3 MPV 9.6 (9.4-12.3) fl Neut % (Auto) 87.2 H (34.0-67.9) % Lymph % (Auto) 7.2 L (21.8-53.1) % [place] % (Auto) 5.3 (5.3-12.2) % Eos % (Auto) 0 L (0.8-7.0) Baso % (Auto) 0.1 (0.1-1.2) % Neut # (Auto) 8.44 H (1.78-5.38) K/mm3 Lymph # (Auto) 0.70 L (1.32-3.57) K/mm3 [place] # (Auto) 0.51 (0.30-0.82) K/mm3 Eos # (Auto) 0.00 L (0.04-0.54) K/mm3 Baso # (Auto) 0.01 (0.01-0.08) K/mm3 Manual Slide Review Abnormal smear D-Dimer, Quantitative 0.47 (0.19-0.50) mg/L Sodium 146 H (136-145) mEq/L Potassium 4.2 (3.5-5.1) mEq/L Chloride 109 H (98-107) mEq/L Carbon Dioxide 26 (21-32) mEq/L Anion Gap 15.2 H (5-15) BUN 25 H (7-18) mg/dL Creatinine 1.0 (0.7-1.3) mg/dL Est Cr Clr Drug Dosing 80.10 mL/min Estimated GFR (MDRD) > 60 (>60) mL/min BUN/Creatinine Ratio 25.0 H (14-18) Glucose 159 H (80-115) mg/dL Calcium 8.5 (8.5-10.1) mg/dL Phosphorus 4.6 (2.6-4.7) mg/dL Magnesium 2.0 (1.8-2.4) mg/dl Total Bilirubin 0.3 (0.2-1.0) mg/dL AST 67 H (15-37) U/L ALT 102 H (16-63) U/L Alkaline Phosphatase 49 (46-116) U/L C-Reactive Protein 6.0 H* (<1.0) mg/dL Total Protein 6.8 (6.4-8.2) g/dl Albumin 2.7 L (3.4-5.0) g/dl Globulin 4.1 gm/dL Albumin/Globulin Ratio 0.7 L (1-2) [place] Results Last 24 Hours: Microbiology 01/21/21 20:14 Aerobic Blood Culture - Preliminary Blood - Venous - Lab Draw NO GROWTH AFTER 1 DAY Anaerobic Blood Culture - Preliminary NO GROWTH AFTER 1 DAY 01/21/21 20:04 Aerobic Blood Culture - Preliminary Blood - Venous NO GROWTH AFTER 1 DAY Anaerobic Blood Culture - Preliminary NO GROWTH AFTER 1 DAY Med Orders - Current: Current Medications Acetaminophen (Acetaminophen 325 Mg Tab) 650 mg PO Q4H PRN PRN Reason: Pain (Mild 1-3)/fever Albuterol (Albuterol 6.7 Gm Inhaler) 0 gm INH Q4H PRN PRN Reason: SOB/Wheezing Last Admin: 01/22/21 20:04 Dose: 2 puff Documented by: Albuterol/Ipratropium (Albuterol/Ipratropium 3.0-0.5 Mg/3 Ml Neb Soln) 3 ml NEB Q4H PRN PRN Reason: Shortness Of Breath/wheezing Amlodipine Besylate (Amlodipine 10 Mg Tab) 10 mg PO DAILY [facility] Last Admin: 01/23/21 08:17 Dose: 10 mg Documented by: Aspirin (Aspirin 325 Mg Tab.Ec) 325 mg PO DAILY [facility] Last Admin: 01/23/21 08:17 Dose: 325 mg Documented by: Atorvastatin Calcium (Atorvastatin 20 Mg Tab) 20 mg PO DAILY [facility] Last Admin: 01/23/21 08:17 Dose: 20 mg Documented by: Cholecalciferol (Cholecalciferol (Vitamin D3) 5,000 Unit Cap) 5,000 unit PO DAILY [facility] Last Admin: 01/23/21 08:17 Dose: 5,000 unit Documented by: Dexamethasone (Dexamethasone 4 Mg Tab) 6 mg PO DAILY [facility] Stop: 01/30/21 09:01 Last Admin: 01/23/21 08:16 Dose: 6 mg Documented by: Docusate Sodium (Docusate Sodium 100 Mg Cap) 100 mg PO BID PRN PRN Reason: Constipation Enoxaparin Sodium (Enoxaparin 40 Mg/0.4 Ml Syringe) 40 mg SUBCUT DAILY [facility] Last Admin: 01/23/21 08:16 Dose: 40 mg Documented by: Famotidine (Famotidine 20 Mg Tab) 20 mg PO BID [facility] Last Admin: 01/23/21 08:17 Dose: 20 mg Documented by: Fluoxetine HCl (Fluoxetine 20 Mg Cap) 20 mg PO DAILY [facility] Last Admin: 01/23/21 08:17 Dose: 20 mg Documented by: Remdesivir 100 mg/ Sodium (Chloride) 100 mls @ 100 mls/hr IV BEDTIME [facility] Stop: 01/25/21 21:59 Last Admin: 01/22/21 21:28 Dose: 100 mls/hr Documented by: Azithromycin 500 mg/ Sodium (Chloride) 250 mls @ 250 mls/hr IV Q24H [facility] Stop: 01/23/21 22:59 Last Admin: 01/22/21 21:29 Dose: 250 mls/hr Documented by: Ceftriaxone Sodium 2 gm/ (Sodium Chloride) 100 mls @ 200 mls/hr IV Q24H [facility] Stop: 01/25/21 22:29 Last Admin: 01/22/21 21:28 Dose: 200 mls/hr Documented by: Magnesium Hydroxide (Magnesium Hydroxide 400 Mg/5 Ml Susp 30 Ml Cup) 30 ml PO Q12H PRN PRN Reason: Constipation Melatonin (Melatonin 3 Mg Tab) 9 mg PO BEDTIME [facility] Last Admin: 01/22/21 21:27 Dose: 9 mg Documented by: Ondansetron HCl (Ondansetron 4 Mg/2 Ml Sdv) 4 mg IV Q4H PRN PRN Reason: Nausea/Vomiting Last Admin: 01/21/21 23:27 Dose: 4 mg Documented by: Tamsulosin HCl (Tamsulosin 0.4 Mg Cap.Er) 0.4 mg PO DAILY [facility] Last Admin: 01/23/21 08:17 Dose: 0.4 mg Documented by: Zinc Sulfate (Zinc Sulfate 220 Mg Cap) 220 mg PO DAILY [facility] Last Admin: 01/23/21 08:17 Dose: 220 mg Documented by: Discontinued Medications Amlodipine Besylate (Amlodipine 5 Mg Tab) 10 mg PO DAILY [facility] Last Admin: 01/22/21 08:19 Dose: 10 mg Documented by: Ceftriaxone Sodium (Ceftriaxone 1 Gm Advvial) Confirm Administered Dose 1 gm IV .ST-MED ONE Stop: 01/21/21 22:04 Last Admin: 01/21/21 22:11 Dose: 1 gm Documented by: Sodium Chloride (Normal Saline) 1,000 mls @ 100 mls/hr IV ASDIRECTED [facility] Last Admin: 01/21/21 19:52 Dose: 100 mls/hr Documented by: Ceftriaxone Sodium 1 gm/ (Sodium Chloride) 100 mls @ 200 mls/hr IV Q24H [facility] Last Admin: 01/21/21 22:12 Dose: 200 mls/hr Documented by: Azithromycin 500 mg/ Sodium (Chloride) 250 mls @ 250 mls/hr IV Q24H [facility] Last Admin: 01/21/21 23:20 Dose: 250 mls/hr Documented by: Sodium Chloride (Normal Saline) Confirm Administered Dose 100 mls @ as directed .ROUTE .STK-MED ONE Stop: 01/21/21 22:04 Last Admin: 01/21/21 23:34 Dose: Not Given Documented by: Remdesivir 200 mg/ Sodium (Chloride) 250 mls @ 250 mls/hr IV ONETIME ONE Stop: 01/21/21 22:39 Last Admin: 01/22/21 00:56 Dose: 250 mls/hr Documented by: Ceftriaxone Sodium 1 gm/ (Sodium Chloride) 100 mls @ 200 mls/hr IV Q24H [facility] Methylprednisolone Sodium Succinate (Methylprednisolone Sodium Succinate 125 Mg/2 Ml Sdv) 125 mg IVPUSH ONETIME ONE Stop: 01/21/21 21:50 Last Admin: 01/21/21 22:10 Dose: 125 mg Documented by: Simvastatin (Simvastatin 10 Mg Tab) 10 mg PO BEDTIME [facility] - Exam Quality Assessment: Supplemental Oxygen General: Alert, Oriented HEENT: Pupils Equal, Mucous Membr. Moist/[place] Neck: Supple Lungs: Crackles (Bibasilar). No: Normal Respiratory Effort Cardiovascular: Regular Rate, Regular Rhythm GI/Abdominal Exam: Normal Bowel Sounds, Soft, Non-Tender, No Distention Extremities: Normal Inspection, Normal Range of Motion, Non-Tender, No Pedal Edema, Normal Capillary Refill Peripheral Pulses: 2+: Posterior Tibial (L), Posterior Tibial (R), Dorsalis Pedis (L), Dorsalis Pedis (R) Skin: Warm, Dry, Intact Psy/Mental Status: Alert, Normal Affect, Normal Mood - Patient Data Lab Results Last 24 hrs: Laboratory Results - last 24 hr 01/23/21 01/23/21 01/23/21 Range/Units 05:10 05:10 05:10 WBC 9.68 H (4.23-9.07) K/mm3 RBC 4.77 (4.63-6.08) M/mm3 Hgb 13.5 L (13.7-17.5) gm/dl Hct 40.5 (40.1-51.0) % MCV 84.9 (79.0-92.2) fl MCH 28.3 (25.7-32.2) pg MCHC 33.3 (32.2-35.5) g/dl RDW Std Deviation 41.8 (35.1-43.9) fL Plt Count 269 (163-337) K/mm3 MPV 9.6 (9.4-12.3) fl Neut % (Auto) 87.2 H (34.0-67.9) % Lymph % (Auto) 7.2 L (21.8-53.1) % [place] % (Auto) 5.3 (5.3-12.2) % Eos % (Auto) 0 L (0.8-7.0) Baso % (Auto) 0.1 (0.1-1.2) % Neut # (Auto) 8.44 H (1.78-5.38) K/mm3 Lymph # (Auto) 0.70 L (1.32-3.57) K/mm3 [place] # (Auto) 0.51 (0.30-0.82) K/mm3 Eos # (Auto) 0.00 L (0.04-0.54) K/mm3 Baso # (Auto) 0.01 (0.01-0.08) K/mm3 Manual Slide Review Abnormal smear D-Dimer, Quantitative 0.47 (0.19-0.50) mg/L Sodium 146 H (136-145) mEq/L Potassium 4.2 (3.5-5.1) mEq/L Chloride 109 H (98-107) mEq/L Carbon Dioxide 26 (21-32) mEq/L Anion Gap 15.2 H (5-15) BUN 25 H (7-18) mg/dL Creatinine 1.0 (0.7-1.3) mg/dL Est Cr Clr Drug Dosing 80.10 mL/min Estimated GFR (MDRD) > 60 (>60) mL/min BUN/Creatinine Ratio 25.0 H (14-18) Glucose 159 H (80-115) mg/dL Calcium 8.5 (8.5-10.1) mg/dL Phosphorus 4.6 (2.6-4.7) mg/dL Magnesium 2.0 (1.8-2.4) mg/dl Total Bilirubin 0.3 (0.2-1.0) mg/dL AST 67 H (15-37) U/L ALT 102 H (16-63) U/L Alkaline Phosphatase 49 (46-116) U/L C-Reactive Protein 6.0 H* (<1.0) mg/dL Total Protein 6.8 (6.4-8.2) g/dl Albumin 2.7 L (3.4-5.0) g/dl Globulin 4.1 gm/dL Albumin/Globulin Ratio 0.7 L (1-2) Result Diagrams: 01/23/21 05:10 01/23/21 05:10 [place] Results Last 24 hrs: Microbiology 01/21/21 20:14 Aerobic Blood Culture - Preliminary Blood - Venous - Lab Draw NO GROWTH AFTER 1 DAY Anaerobic Blood Culture - Preliminary NO GROWTH AFTER 1 DAY 01/21/21 20:04 Aerobic Blood Culture - Preliminary Blood - Venous NO GROWTH AFTER 1 DAY Anaerobic Blood Culture - Preliminary NO GROWTH AFTER 1 DAY Sepsis Event Note - Evaluation Sepsis Screening Result: No Definite Risk - Focused Exam Vital Signs: Vital Signs Temp Pulse Resp BP Pulse Ox Pulse Ox 01/23/21 14:12 98 01/23/21 13:59 94 L 01/23/21 12:10 93 L 01/23/21 11:44 97.5 F 79 20 118/62 94 L 01/23/21 09:41 94 L 01/23/21 08:17 115/64 01/23/21 08:05 91 L 01/23/21 07:56 96 01/23/21 07:33 97.7 F 94 20 115/64 96 01/23/21 03:42 97.9 F 89 15 109/69 91 L - Problem List & Annotations (1) Pneumonia due to COVID-19 virus SNOMED Code(s): 694275392264547263 Code(s): U07.1 - COVID-19; J12.82 - PNEUMONIA DUE TO CORONAVIRUS DISEASE 2019 Status: Acute Priority: High Current Visit: Yes (2) Former smoker SNOMED Code(s): 7919371 Code(s): Z87.891 - PERSONAL HISTORY OF NICOTINE DEPENDENCE Status: Chronic Priority: Low Current Visit: No (3) HTN (hypertension) SNOMED Code(s): 62512479 Code(s): I10 - ESSENTIAL (PRIMARY) HYPERTENSION Status: Chronic Priority: Medium Current Visit: No Qualifiers: Hypertension type: unspecified Qualified Code(s): I10 - Essential (primary) hypertension - Problem List Review Problem List Initiated/Reviewed/Updated: Yes - My Orders Last 24 Hours: My Active Orders 01/22/21 15:15 atorvaSTATin [Lipitor] 20 mg PO DAILY 01/22/21 21:00 Melatonin 9 mg PO BEDTIME Remdesivir 100 mg Sodium Chloride 0.9% [Normal Saline] 100 ml IV BEDTIME 01/23/21 09:00 amLODIPine [Norvasc] 10 mg PO DAILY 01/24/21 05:11 C-REACTIVE PROTEIN [CHEM] AM CBC WITH AUTO DIFF [HEME] AM CMP [COMPREHENSIVE METABOLIC PN,CMP] [CHEM] AM DD [D-DIMER QUANTITATIVE] [COAG] AM MAGNESIUM [CHEM] AM PHOSPHORUS [CHEM] AM 01/25/21 05:11 C-REACTIVE PROTEIN [CHEM] AM CBC WITH AUTO DIFF [HEME] AM CMP [COMPREHENSIVE METABOLIC PN,CMP] [CHEM] AM DD [D-DIMER QUANTITATIVE] [COAG] AM MAGNESIUM [CHEM] AM PHOSPHORUS [CHEM] AM 01/26/21 05:11 C-REACTIVE PROTEIN [CHEM] AM CBC WITH AUTO DIFF [HEME] AM CMP [COMPREHENSIVE METABOLIC PN,CMP] [CHEM] AM DD [D-DIMER QUANTITATIVE] [COAG] AM MAGNESIUM [CHEM] AM PHOSPHORUS [CHEM] AM 01/27/21 05:11 C-REACTIVE PROTEIN [CHEM] AM CBC WITH AUTO DIFF [HEME] AM CMP [COMPREHENSIVE METABOLIC PN,CMP] [CHEM] AM DD [D-DIMER QUANTITATIVE] [COAG] AM MAGNESIUM [CHEM] AM PHOSPHORUS [CHEM] AM - Plan Plan:: Assessment - 01/22/21 (admitted late 01/21/21) * 60-year-old male presents to our ED with worsening Covid symptoms. * Lead diagnosed with Covid 9 days ago and has had worsening shortness of breath since then * History of HTN, HLD, prostate disorder. Is a former smoker. * Twelve-lead EKG shows sinus rhythm at 81 bpm with T wave inversion in 3, aVF, V3 through V5. * Chest x-ray shows increased density on both sides of the chest worse on left compatible with bilateral Covid pneumonia. * Labs in ED and on floor: * WBC 6.28-->4.34 * Hemoglobin 14.3-->14.4 * Platelet 209,000-->224,000 * Neutrophils 79% but no bandemia-->85% * D-dimer 0.51-->0.48 * Sodium 140-->143 * Potassium 3.1-->4.2 * Chloride 102-->106 * Carbon dioxide 24-->27 * Anion gap 17.1-->14.2 * BUN 22-->17, creatinine 1.1-->1.0, GFR greater than 60--> Greater than 60 * Glucose 113-->174 * Calcium 8.7-->8.5 * Magnesium 2.0-->2.4 * Total bilirubin 0.7-->0.4 * AST 75-->63, ALT 86-->81, alkaline phosphatase 51-->41 * CK 714 * Troponin less than 0.017 * Albumin 3.1-->2.9 * CRP 11.6 * Lipase 82 * TSH 3.350 * proBNP 57 * UA negative however trace ketones, 10-20 hyaline casts, 10-20 WBCs, rare WBC clumps, many bacteria and many mucus noted * SARS-CoV-2 RNA positive * ABG obtained in left radial: pH 7.47, PCO2 32.5, PO2 49.0, HCO3 of 23.5, O2 saturation 85.2, base excess 1.0, A-a gradient 60, obtained on room air. * Patient given 125 mg Solu-Medrol, Rocephin 1 g, 500 mg azithromycin in ED. * Subsequently admitted to the medical floor inpatient with telemetry for management of COVID-19 pneumonia. 01/23/2021 Hypoxia Pneumonia due to COVID-19 virus Former smoker * O2 as needed - goal saturations 88-95% * Azithromycin 500mg - Day 12/23 * Rocephin 2gm - Day 12/25 * Remdisivir - day 12/25 * Dexamethasone 6mg - Day 12/30 * IS/Acapella * Prone whenever able * Ambulate * IS/Acapella * RT consultation * Albuterol/duonebs * Repeat CXR as indicated * Daily labs as ordered * Will hold off PT/OT for now * Daily ASA * Vitamin D supplementation * Zinc supplementation * Melatonin at bedtime * Blood cultures negative after 2 days * May need high flow nasal cannula if not able to maintain oxygen saturations Asymptomatic bacteriuria * No treatment at this time * Already receiving abx for Covid-19 as above. * On Rocephin HTN (hypertension) HLD (hyperlipidemia) Prostate disorder * No acute concerns * Monitor vital signs * Home medications as ordered Code Status: Full Code PCP: Dr. Olsen DVT Prophylaxis: Lovenox Social: Patient resides with who is also COVID-19 positive and hospitalized Disposition: Patient admitted for management of COVID-19. LOS anticipated at [place] 5 days for COVID treatment. LOS >96HRs for COVID-19 treatment.
[2021-01-23] MEDS: REMDESIVIR 100 MG in Sodium Chloride 0.9% 100 ML IV SCH (20:12)
[2021-01-23] MEDS: Albuterol 6.7 GM Inhaler INH PRN (20:25)
[2021-01-23] MEDS: cefTRIAXone 2 GM in Sodium Chloride 0.9% 100 ML IV SCH (21:27)
[2021-01-23] MEDS: Azithromycin 500 MG in Sodium Chloride 0.9% 250 ML IV SCH (21:27)
[2021-01-23] MEDS: Melatonin 3 MG Tab PO SCH (21:28)
[2021-01-24] MEDS: Aspirin 325 MG Tab.EC PO SCH (08:24)
[2021-01-24] MEDS: Dexamethasone 4 MG Tab PO SCH (08:25)
[2021-01-24] MEDS: Cholecalciferol (Vitamin D3) 5,000 UNIT Cap PO SCH (08:25)
[2021-01-24] MEDS: Famotidine 20 MG Tab PO SCH ×2 (08:25→20:15)
[2021-01-24] MEDS: amLODIPine 10 MG Tab PO SCH (08:26)
[2021-01-24] MEDS: Tamsulosin 0.4 MG Cap.ER PO SCH (08:26)
[2021-01-24] MEDS: Zinc Sulfate 220 MG Cap PO SCH (08:26)
[2021-01-24] MEDS: Enoxaparin 40 MG/0.4 ML Syringe SUBCUT SCH (08:27)
[2021-01-24] MEDS: atorvaSTATin 20 MG Tab PO SCH (08:27)
[2021-01-24] MEDS: FLUoxetine 20 MG Cap PO SCH (08:27)
[2021-01-24] MEDS ORDERED: atorvaSTATin 20 MG Tab PO SCH (09:00)
--- NOTE | 2021-01-24 11:45 | PCM.PN ---
- General Info Date of Service: 01/24/21 Admission Dx/Problem (Free Text): Admission Diagnosis/Problem Admission Diagnosis/Problem Hypoxia Subjective Update: Patient is generally feeling well. He has had no significant changes. Oxygenation has improved. He is on 4 L currently at 99%. Functional Status: Reports: Pain Controlled - Review of Systems General: Reports: No Symptoms HEENT: Reports: No Symptoms Pulmonary: Reports: Shortness of Breath, Cough Cardiovascular: Reports: No Symptoms Gastrointestinal: Reports: No Symptoms Musculoskeletal: Reports: No Symptoms Psychiatric: Reports: No Symptoms - Patient Data Vitals - Most Recent: Last Vital Signs Temp 97.9 F 01/24/21 08:21 Pulse 70 01/24/21 08:21 Resp 18 01/24/21 08:21 BP 115/68 01/24/21 08:26 Pulse Ox 92 L 01/24/21 08:21 Weight - Most Recent: 226 lb 4.8 oz I&O - Last 24 Hours: Intake & Output 01/23/21 01/24/21 01/24/21 22:59 06:59 14:59 Intake Total 1180 1050 Output Total 800 900 Balance 380 150 Lab Results Last 24 Hours: Laboratory Results - last 24 hr 01/24/21 01/24/21 01/24/21 Range/Units 05:17 05:17 05:17 WBC 11.03 H (4.23-9.07) K/mm3 RBC 4.74 (4.63-6.08) M/mm3 Hgb 13.4 L (13.7-17.5) gm/dl Hct 40.8 (40.1-51.0) % MCV 86.1 (79.0-92.2) fl MCH 28.3 (25.7-32.2) pg MCHC 32.8 (32.2-35.5) g/dl RDW Std Deviation 42.4 (35.1-43.9) fL Plt Count 303 (163-337) K/mm3 MPV 10.1 (9.4-12.3) fl Neut % (Auto) 88.4 H (34.0-67.9) % Lymph % (Auto) 6.4 L (21.8-53.1) % Delta % (Auto) 5.0 L (5.3-12.2) % Eos % (Auto) 0 L (0.8-7.0) Baso % (Auto) 0.0 L (0.1-1.2) % Neut # (Auto) 9.75 H (1.78-5.38) K/mm3 Lymph # (Auto) 0.71 L (1.32-3.57) K/mm3 Delta # (Auto) 0.55 (0.30-0.82) K/mm3 Eos # (Auto) 0.00 L (0.04-0.54) K/mm3 Baso # (Auto) 0.00 L (0.01-0.08) K/mm3 Manual Slide Review Abnormal smear D-Dimer, Quantitative 0.52 H (0.19-0.50) mg/L Sodium 147 H (136-145) mEq/L Potassium 4.2 (3.5-5.1) mEq/L Chloride 110 H (98-107) mEq/L Carbon Dioxide 26 (21-32) mEq/L Anion Gap 15.2 H (5-15) BUN 25 H (7-18) mg/dL Creatinine 1.0 (0.7-1.3) mg/dL Est Cr Clr Drug Dosing 80.10 mL/min Estimated GFR (MDRD) > 60 (>60) mL/min BUN/Creatinine Ratio 25.0 H (14-18) Glucose 143 H (80-115) mg/dL Calcium 8.3 L (8.5-10.1) mg/dL Phosphorus 4.3 (2.6-4.7) mg/dL Magnesium 2.0 (1.8-2.4) mg/dl Total Bilirubin 0.4 (0.2-1.0) mg/dL AST 57 H (15-37) U/L ALT 112 H (16-63) U/L Alkaline Phosphatase 47 (46-116) U/L C-Reactive Protein 2.5 H* (<1.0) mg/dL Total Protein 6.3 L (6.4-8.2) g/dl Albumin 2.6 L (3.4-5.0) g/dl Globulin 3.7 gm/dL Albumin/Globulin Ratio 0.7 L (1-2) [place] Results Last 24 Hours: Microbiology 01/21/21 20:14 Aerobic Blood Culture - Preliminary Blood - Venous - Lab Draw NO GROWTH AFTER 2 DAYS Anaerobic Blood Culture - Preliminary NO GROWTH AFTER 2 DAYS 01/21/21 20:04 Aerobic Blood Culture - Preliminary Blood - Venous NO GROWTH AFTER 2 DAYS Anaerobic Blood Culture - Preliminary NO GROWTH AFTER 2 DAYS Med Orders - Current: Current Medications Acetaminophen (Acetaminophen 325 Mg Tab) 650 mg PO Q4H PRN PRN Reason: Pain (Mild 1-3)/fever Albuterol (Albuterol 6.7 Gm Inhaler) 0 gm INH Q4H PRN PRN Reason: SOB/Wheezing Last Admin: 01/23/21 20:25 Dose: 2 puff Documented by: Albuterol/Ipratropium (Albuterol/Ipratropium 3.0-0.5 Mg/3 Ml Neb Soln) 3 ml NEB Q4H PRN PRN Reason: Shortness Of Breath/wheezing Amlodipine Besylate (Amlodipine 10 Mg Tab) 10 mg PO DAILY [facility] Last Admin: 01/24/21 08:26 Dose: 10 mg Documented by: Aspirin (Aspirin 325 Mg Tab.Ec) 325 mg PO DAILY [facility] Last Admin: 01/24/21 08:24 Dose: 325 mg Documented by: Atorvastatin Calcium (Atorvastatin 20 Mg Tab) 20 mg PO DAILY [facility] Last Admin: 01/24/21 08:27 Dose: 20 mg Documented by: Cholecalciferol (Cholecalciferol (Vitamin D3) 5,000 Unit Cap) 5,000 unit PO DAILY [facility] Last Admin: 01/24/21 08:25 Dose: 5,000 unit Documented by: Dexamethasone (Dexamethasone 4 Mg Tab) 6 mg PO DAILY [facility] Stop: 01/30/21 09:01 Last Admin: 01/24/21 08:25 Dose: 6 mg Documented by: Docusate Sodium (Docusate Sodium 100 Mg Cap) 100 mg PO BID PRN PRN Reason: Constipation Enoxaparin Sodium (Enoxaparin 40 Mg/0.4 Ml Syringe) 40 mg SUBCUT DAILY [facility] Last Admin: 01/24/21 08:27 Dose: 40 mg Documented by: Famotidine (Famotidine 20 Mg Tab) 20 mg PO BID [facility] Last Admin: 01/24/21 08:25 Dose: 20 mg Documented by: Fluoxetine HCl (Fluoxetine 20 Mg Cap) 20 mg PO DAILY [facility] Last Admin: 01/24/21 08:27 Dose: 20 mg Documented by: Remdesivir 100 mg/ Sodium (Chloride) 100 mls @ 100 mls/hr IV BEDTIME [facility] Stop: 01/25/21 21:59 Last Admin: 01/23/21 20:12 Dose: 100 mls/hr Documented by: Ceftriaxone Sodium 2 gm/ (Sodium Chloride) 100 mls @ 200 mls/hr IV Q24H [facility] Stop: 01/25/21 22:29 Last Admin: 01/23/21 21:27 Dose: 200 mls/hr Documented by: Magnesium Hydroxide (Magnesium Hydroxide 400 Mg/5 Ml Susp 30 Ml Cup) 30 ml PO Q12H PRN PRN Reason: Constipation Melatonin (Melatonin 3 Mg Tab) 9 mg PO BEDTIME [facility] Last Admin: 01/23/21 21:28 Dose: 9 mg Documented by: Ondansetron HCl (Ondansetron 4 Mg/2 Ml Sdv) 4 mg IV Q4H PRN PRN Reason: Nausea/Vomiting Last Admin: 01/21/21 23:27 Dose: 4 mg Documented by: Tamsulosin HCl (Tamsulosin 0.4 Mg Cap.Er) 0.4 mg PO DAILY [facility] Last Admin: 01/24/21 08:26 Dose: 0.4 mg Documented by: Zinc Sulfate (Zinc Sulfate 220 Mg Cap) 220 mg PO DAILY [facility] Last Admin: 01/24/21 08:26 Dose: 220 mg Documented by: Discontinued Medications Amlodipine Besylate (Amlodipine 5 Mg Tab) 10 mg PO DAILY [facility] Last Admin: 01/22/21 08:19 Dose: 10 mg Documented by: Atorvastatin Calcium (Atorvastatin 20 Mg Tab) 20 mg PO DAILY [facility] Ceftriaxone Sodium (Ceftriaxone 1 Gm Advvial) Confirm Administered Dose 1 gm IV .ST-MED ONE Stop: 01/21/21 22:04 Last Admin: 01/21/21 22:11 Dose: 1 gm Documented by: Sodium Chloride (Normal Saline) 1,000 mls @ 100 mls/hr IV ASDIRECTED [facility] Last Admin: 01/21/21 19:52 Dose: 100 mls/hr Documented by: Ceftriaxone Sodium 1 gm/ (Sodium Chloride) 100 mls @ 200 mls/hr IV Q24H [facility] Last Admin: 01/21/21 22:12 Dose: 200 mls/hr Documented by: Azithromycin 500 mg/ Sodium (Chloride) 250 mls @ 250 mls/hr IV Q24H [facility] Last Admin: 04/01/21 23:20 Dose: 250 mls/hr Documented by: Sodium Chloride (Normal Saline) Confirm Administered Dose 100 mls @ as directed .ROUTE .STK-MED ONE Stop: 01/21/21 22:04 Last Admin: 01/21/21 23:34 Dose: Not Given Documented by: Remdesivir 200 mg/ Sodium (Chloride) 250 mls @ 250 mls/hr IV ONETIME ONE Stop: 01/21/21 22:39 Last Admin: 01/22/21 00:56 Dose: 250 mls/hr Documented by: Ceftriaxone Sodium 1 gm/ (Sodium Chloride) 100 mls @ 200 mls/hr IV Q24H [facility] Azithromycin 500 mg/ Sodium (Chloride) 250 mls @ 250 mls/hr IV Q24H [facility] Stop: 01/23/21 22:59 Last Admin: 01/23/21 21:27 Dose: 250 mls/hr Documented by: Methylprednisolone Sodium Succinate (Methylprednisolone Sodium Succinate 125 Mg/2 Ml Sdv) 125 mg IVPUSH ONETIME ONE Stop: 01/21/21 21:50 Last Admin: 01/21/21 22:10 Dose: 125 mg Documented by: Simvastatin (Simvastatin 10 Mg Tab) 10 mg PO BEDTIME [facility] - Exam Quality Assessment: Supplemental Oxygen General: Alert, Oriented HEENT: Pupils Equal, Mucous Membr. Moist/[place] Neck: Supple Lungs: Crackles (Bibasilar). No: Normal Respiratory Effort (Increased respiratory rate) Cardiovascular: Regular Rate, Regular Rhythm GI/Abdominal Exam: Normal Bowel Sounds, Soft, Non-Tender, No Distention Extremities: Normal Inspection, Normal Range of Motion, Non-Tender, No Pedal Edema, Normal Capillary Refill Skin: Warm, Dry, Intact Psy/Mental Status: Alert, Normal Affect, Normal Mood - Patient Data Lab Results Last 24 hrs: Laboratory Results - last 24 hr 01/24/21 01/24/21 01/24/21 Range/Units 05:17 05:17 05:17 WBC 11.03 H (4.23-9.07) K/mm3 RBC 4.74 (4.63-6.08) M/mm3 Hgb 13.4 L (13.7-17.5) gm/dl Hct 40.8 (40.1-51.0) % MCV 86.1 (79.0-92.2) fl MCH 28.3 (25.7-32.2) pg MCHC 32.8 (32.2-35.5) g/dl RDW Std Deviation 42.4 (35.1-43.9) fL Plt Count 303 (163-337) K/mm3 MPV 10.1 (9.4-12.3) fl Neut % (Auto) 88.4 H (34.0-67.9) % Lymph % (Auto) 6.4 L (21.8-53.1) % Delta % (Auto) 5.0 L (5.3-12.2) % Eos % (Auto) 0 L (0.8-7.0) Baso % (Auto) 0.0 L (0.1-1.2) % Neut # (Auto) 9.75 H (1.78-5.38) K/mm3 Lymph # (Auto) 0.71 L (1.32-3.57) K/mm3 Delta # (Auto) 0.55 (0.30-0.82) K/mm3 Eos # (Auto) 0.00 L (0.04-0.54) K/mm3 Baso # (Auto) 0.00 L (0.01-0.08) K/mm3 Manual Slide Review Abnormal smear D-Dimer, Quantitative 0.52 H (0.19-0.50) mg/L Sodium 147 H (136-145) mEq/L Potassium 4.2 (3.5-5.1) mEq/L Chloride 110 H (98-107) mEq/L Carbon Dioxide 26 (21-32) mEq/L Anion Gap 15.2 H (5-15) BUN 25 H (7-18) mg/dL Creatinine 1.0 (0.7-1.3) mg/dL Est Cr Clr Drug Dosing 80.10 mL/min Estimated GFR (MDRD) > 60 (>60) mL/min BUN/Creatinine Ratio 25.0 H (14-18) Glucose 143 H (80-115) mg/dL Calcium 8.3 L (8.5-10.1) mg/dL Phosphorus 4.3 (2.6-4.7) mg/dL Magnesium 2.0 (1.8-2.4) mg/dl Total Bilirubin 0.4 (0.2-1.0) mg/dL AST 57 H (15-37) U/L ALT 112 H (16-63) U/L Alkaline Phosphatase 47 (46-116) U/L C-Reactive Protein 2.5 H* (<1.0) mg/dL Total Protein 6.3 L (6.4-8.2) g/dl Albumin 2.6 L (3.4-5.0) g/dl Globulin 3.7 gm/dL Albumin/Globulin Ratio 0.7 L (1-2) Result Diagrams: 01/24/21 05:17 01/24/21 05:17 [place] Results Last 24 hrs: Microbiology 01/21/21 20:14 Aerobic Blood Culture - Preliminary Blood - Venous - Lab Draw NO GROWTH AFTER 2 DAYS Anaerobic Blood Culture - Preliminary NO GROWTH AFTER 2 DAYS 01/21/21 20:04 Aerobic Blood Culture - Preliminary Blood - Venous NO GROWTH AFTER 2 DAYS Anaerobic Blood Culture - Preliminary NO GROWTH AFTER 2 DAYS Sepsis Event Note - Evaluation Sepsis Screening Result: No Definite Risk - Focused Exam Vital Signs: Vital Signs Temp Pulse Resp BP Pulse Ox Pulse Ox 01/24/21 08:26 115/68 01/24/21 08:21 97.9 F 70 18 115/68 92 L 01/24/21 08:17 90 L 01/24/21 04:48 98.2 F 73 16 127/74 89 L - Problem List & Annotations (1) Pneumonia due to COVID-19 virus SNOMED Code(s): 006301136762282715 Code(s): U07.1 - COVID-19; J12.82 - PNEUMONIA DUE TO CORONAVIRUS DISEASE 2019 Status: Acute Priority: High Current Visit: Yes (2) Former smoker SNOMED Code(s): 2776883 Code(s): Z87.891 - PERSONAL HISTORY OF NICOTINE DEPENDENCE Status: Chronic Priority: Low Current Visit: No (3) HTN (hypertension) SNOMED Code(s): 99344102 Code(s): I10 - ESSENTIAL (PRIMARY) HYPERTENSION Status: Chronic Priority: Medium Current Visit: No Qualifiers: Hypertension type: unspecified Qualified Code(s): I10 - Essential (primary) hypertension - Problem List Review Problem List Initiated/Reviewed/Updated: Yes - My Orders Last 24 Hours: My Active Orders 01/25/21 05:11 C-REACTIVE PROTEIN [CHEM] AM CBC WITH AUTO DIFF [HEME] AM CMP [COMPREHENSIVE METABOLIC PN,CMP] [CHEM] AM DD [D-DIMER QUANTITATIVE] [COAG] AM MAGNESIUM [CHEM] AM PHOSPHORUS [CHEM] AM 01/26/21 05:11 C-REACTIVE PROTEIN [CHEM] AM CBC WITH AUTO DIFF [HEME] AM CMP [COMPREHENSIVE METABOLIC PN,CMP] [CHEM] AM DD [D-DIMER QUANTITATIVE] [COAG] AM MAGNESIUM [CHEM] AM PHOSPHORUS [CHEM] AM 01/27/21 05:11 C-REACTIVE PROTEIN [CHEM] AM CBC WITH AUTO DIFF [HEME] AM CMP [COMPREHENSIVE METABOLIC PN,CMP] [CHEM] AM DD [D-DIMER QUANTITATIVE] [COAG] AM MAGNESIUM [CHEM] AM PHOSPHORUS [CHEM] AM - Plan Plan:: Assessment - 01/22/21 (admitted late 01/21/21) * 60-year-old male presents to our ED with worsening Covid symptoms. * Lead diagnosed with Covid 9 days ago and has had worsening shortness of breath since then * History of HTN, HLD, prostate disorder. Is a former smoker. * Twelve-lead EKG shows sinus rhythm at 81 bpm with T wave inversion in 3, aVF, V3 through V5. * Chest x-ray shows increased density on both sides of the chest worse on left compatible with bilateral Covid pneumonia. * Labs in ED and on floor: * WBC 6.28-->4.34 * Hemoglobin 14.3-->14.4 * Platelet 209,000-->224,000 * Neutrophils 79% but no bandemia-->85% * D-dimer 0.51-->0.48 * Sodium 140-->143 * Potassium 3.1-->4.2 * Chloride 102-->106 * Carbon dioxide 24-->27 * Anion gap 17.1-->14.2 * BUN 22-->17, creatinine 1.1-->1.0, GFR greater than 60--> Greater than 60 * Glucose 113-->174 * Calcium 8.7-->8.5 * Magnesium 2.0-->2.4 * Total bilirubin 0.7-->0.4 * AST 75-->63, ALT 86-->81, alkaline phosphatase 51-->41 * CK 714 * Troponin less than 0.017 * Albumin 3.1-->2.9 * CRP 11.6 * Lipase 82 * TSH 3.350 * proBNP 57 * UA negative however trace ketones, 10-20 hyaline casts, 10-20 WBCs, rare WBC clumps, many bacteria and many mucus noted * SARS-CoV-2 RNA positive * ABG obtained in left radial: pH 7.47, PCO2 32.5, PO2 49.0, HCO3 of 23.5, O2 saturation 85.2, base excess 1.0, A-a gradient 60, obtained on room air. * Patient given 125 mg Solu-Medrol, Rocephin 1 g, 500 mg azithromycin in ED. * Subsequently admitted to the medical floor inpatient with telemetry for management of COVID-19 pneumonia. 01/23/2021 Hypoxia Pneumonia due to COVID-19 virus Former smoker * O2 as needed - goal saturations 88-95% * Azithromycin 500mg - Day 12/23 * Rocephin 2gm - Day 12/25 * Remdisivir - day 12/25 * Dexamethasone 6mg - Day 12/30 * IS/Acapella * Prone whenever able * Ambulate * IS/Acapella * RT consultation * Albuterol/duonebs * Repeat CXR as indicated * Daily labs as ordered * Will hold off PT/OT for now * Daily ASA * Vitamin D supplementation * Zinc supplementation * Melatonin at bedtime * Blood cultures negative after 2 days * May need high flow nasal cannula if not able to maintain oxygen saturations Asymptomatic bacteriuria * No treatment at this time * Already receiving abx for Covid-19 as above. * On Rocephin HTN (hypertension) HLD (hyperlipidemia) Prostate disorder * No acute concerns * Monitor vital signs * Home medications as ordered 01/24/2021 Hypoxia Pneumonia due to COVID-19 virus Former smoker * Patient is improving * O2 as needed - goal saturations 88-95%; able to decrease to of 3 to 4 L/min * Azithromycin 500mg -completed * Rocephin 2gm - Day 01/25 * Remdisivir - day 01/25 * Dexamethasone 6mg - Day 01/30 * IS/Acapella * Continue encouraging proning * Ambulate * RT consultation * Albuterol/duonebs * Repeat CXR as indicated * Daily labs as ordered * PT OT consult for tomorrow * Daily ASA * Vitamin D supplementation * Zinc supplementation * Melatonin at bedtime * Blood cultures negative after 3 days Asymptomatic bacteriuria * No treatment at this time * Already receiving abx for Covid-19 as above. * On Rocephin HTN (hypertension) HLD (hyperlipidemia) Prostate disorder * No acute concerns * Monitor vital signs * Home medications as ordered Code Status: Full Code PCP: Dr. Olsen DVT Prophylaxis: Lovenox Social: Patient resides with who is also COVID-19 positive and hospitalized Disposition: Patient admitted for management of COVID-19. LOS anticipated at least 5 days for COVID treatment. LOS >96HRs for COVID-19 treatment.
[2021-01-24] MEDS: REMDESIVIR 100 MG in Sodium Chloride 0.9% 100 ML IV SCH (20:14)
[2021-01-24] MEDS: Melatonin 3 MG Tab PO SCH (20:15)
[2021-01-24] MEDS: cefTRIAXone 2 GM in Sodium Chloride 0.9% 100 ML IV SCH (21:18)
[2021-01-25] MEDS: FLUoxetine 20 MG Cap PO SCH (08:04)
[2021-01-25] MEDS: amLODIPine 10 MG Tab PO SCH (08:05)
[2021-01-25] MEDS: Dexamethasone 4 MG Tab PO SCH (08:06)
[2021-01-25] MEDS: atorvaSTATin 20 MG Tab PO SCH (08:06)
[2021-01-25] MEDS: Aspirin 325 MG Tab.EC PO SCH (08:07)
[2021-01-25] MEDS: Zinc Sulfate 220 MG Cap PO SCH (08:07)
[2021-01-25] MEDS: Tamsulosin 0.4 MG Cap.ER PO SCH (08:07)
[2021-01-25] MEDS: Enoxaparin 40 MG/0.4 ML Syringe SUBCUT SCH (08:08)
[2021-01-25] MEDS: Cholecalciferol (Vitamin D3) 5,000 UNIT Cap PO SCH (08:08)
[2021-01-25] MEDS: Famotidine 20 MG Tab PO SCH ×2 (08:08→20:19)
--- NOTE | 2021-01-25 09:12 | PCM.PN ---
- General Info Date of Service: 01/25/21 Admission Dx/Problem (Free Text): Admission Diagnosis/Problem Admission Diagnosis/Problem Hypoxia Subjective Update: In to see Jj. He reports he is doing quite well and feels pretty good. He is on 1 L of oxygen. He continues to utilize incentive spirometry and Acapella. He continues to prone. Tonight he will finish his last dose of Rocephin and remdesivir. Likely discharge tomorrow pending continued improvement and stability. Functional Status: Reports: Pain Controlled, Tolerating Diet, Ambulating, Urinating, Incentive Spirometry, Other (Acpella ). Denies: New Symptoms - Review of Systems General: Reports: No Symptoms. Denies: Fever, Weakness, Fatigue, Malaise, Chills HEENT: Reports: No Symptoms. Denies: Headaches, Sore Throat Pulmonary: Reports: Shortness of Breath, Cough. Denies: Sputum, Wheezing Cardiovascular: Reports: No Symptoms, Dyspnea on Exertion. Denies: Chest Pain, Palpitations, Lightheadedness Gastrointestinal: Reports: No Symptoms. Denies: Abdominal Pain, Constipation, Diarrhea, Nausea, Vomiting Genitourinary: Reports: No Symptoms. Denies: Pain Musculoskeletal: Reports: No Symptoms Skin: Reports: No Symptoms. Denies: Cyanosis Neurological: Reports: No Symptoms. Denies: Confusion, Pre-Existing Deficit, Difficulty Walking, Weakness, Gait Disturbance Psychiatric: Reports: No Symptoms - Patient Data Vitals - Most Recent: Last Vital Signs Temp 98.1 F 01/25/21 07:54 Pulse 64 01/25/21 07:54 Resp 20 01/25/21 07:54 BP 119/71 01/25/21 08:05 Pulse Ox 92 L 01/25/21 07:54 Weight - Most Recent: 228 lb 3.2 oz I&O - Last 24 Hours: Intake & Output 01/24/21 01/25/21 01/25/21 22:59 06:59 14:59 Intake Total 1240 600 Output Total 900 700 Balance 340 -100 Lab Results Last 24 Hours: Laboratory Results - last 24 hr 01/25/21 01/25/21 01/25/21 Range/Units 04:48 04:48 04:48 WBC 8.91 (4.23-9.07) K/mm3 RBC 4.72 (4.63-6.08) M/mm3 Hgb 13.5 L (13.7-17.5) gm/dl Hct 40.6 (40.1-51.0) % MCV 86.0 (79.0-92.2) fl MCH 28.6 (25.7-32.2) pg MCHC 33.3 (32.2-35.5) g/dl RDW Std Deviation 42.2 (35.1-43.9) fL Plt Count 285 (163-337) K/mm3 MPV 9.8 (9.4-12.3) fl Neut % (Auto) 86.5 H (34.0-67.9) % Lymph % (Auto) 6.3 L (21.8-53.1) % Garrard % (Auto) 7.0 (5.3-12.2) % Eos % (Auto) 0 L (0.8-7.0) Baso % (Auto) 0.0 L (0.1-1.2) % Neut # (Auto) 7.71 H (1.78-5.38) K/mm3 Lymph # (Auto) 0.56 L (1.32-3.57) K/mm3 [place] # (Auto) 0.62 (0.30-0.82) K/mm3 Eos # (Auto) 0.00 L (0.04-0.54) K/mm3 Baso # (Auto) 0.00 L (0.01-0.08) K/mm3 Manual Slide Review Abnormal smear D-Dimer, Quantitative 0.70 H (0.19-0.50) mg/L Sodium 145 (136-145) mEq/L Potassium 4.1 (3.5-5.1) mEq/L Chloride 108 H (98-107) mEq/L Carbon Dioxide 27 (21-32) mEq/L Anion Gap 14.1 (5-15) BUN 22 H (7-18) mg/dL Creatinine 0.9 (0.7-1.3) mg/dL Est Cr Clr Drug Dosing 89.00 mL/min Estimated GFR (MDRD) > 60 (>60) mL/min BUN/Creatinine Ratio 24.4 H (14-18) Glucose 164 H (80-115) mg/dL Calcium 8.5 (8.5-10.1) mg/dL Phosphorus 3.9 (2.6-4.7) mg/dL Magnesium 2.2 (1.8-2.4) mg/dl Total Bilirubin 0.4 (0.2-1.0) mg/dL AST 34 (15-37) U/L ALT 111 H (16-63) U/L Alkaline Phosphatase 46 (46-116) U/L C-Reactive Protein 1.5 H* (<1.0) mg/dL Total Protein 6.2 L (6.4-8.2) g/dl Albumin 2.5 L (3.4-5.0) g/dl Globulin 3.7 gm/dL Albumin/Globulin Ratio 0.7 L (1-2) [place] Results Last 24 Hours: Microbiology 01/21/21 20:14 Aerobic Blood Culture - Preliminary Blood - Venous - Lab Draw NO GROWTH AFTER 3 DAYS Anaerobic Blood Culture - Preliminary NO GROWTH AFTER 3 DAYS 01/21/21 20:04 Aerobic Blood Culture - Preliminary Blood - Venous NO GROWTH AFTER 3 DAYS Anaerobic Blood Culture - Preliminary NO GROWTH AFTER 3 DAYS Med Orders - Current: Current Medications Acetaminophen (Acetaminophen 325 Mg Tab) 650 mg PO Q4H PRN PRN Reason: Pain (Mild 1-3)/fever Albuterol (Albuterol 6.7 Gm Inhaler) 0 gm INH Q4H PRN PRN Reason: SOB/Wheezing Last Admin: 01/23/21 20:25 Dose: 2 puff Documented by: Albuterol/Ipratropium (Albuterol/Ipratropium 3.0-0.5 Mg/3 Ml Neb Soln) 3 ml NEB Q4H PRN PRN Reason: Shortness Of Breath/wheezing Amlodipine Besylate (Amlodipine 10 Mg Tab) 10 mg PO DAILY [facility] Last Admin: 01/25/21 08:05 Dose: 10 mg Documented by: Aspirin (Aspirin 325 Mg Tab.Ec) 325 mg PO DAILY [facility] Last Admin: 01/25/21 08:07 Dose: 325 mg Documented by: Atorvastatin Calcium (Atorvastatin 20 Mg Tab) 20 mg PO DAILY [facility] Last Admin: 01/25/21 08:06 Dose: 20 mg Documented by: Cholecalciferol (Cholecalciferol (Vitamin D3) 5,000 Unit Cap) 5,000 unit PO DAILY [facility] Last Admin: 01/25/21 08:08 Dose: 5,000 unit Documented by: Dexamethasone (Dexamethasone 4 Mg Tab) 6 mg PO DAILY [facility] Stop: 01/30/21 09:01 Last Admin: 01/25/21 08:06 Dose: 6 mg Documented by: Docusate Sodium (Docusate Sodium 100 Mg Cap) 100 mg PO BID PRN PRN Reason: Constipation Enoxaparin Sodium (Enoxaparin 40 Mg/0.4 Ml Syringe) 40 mg SUBCUT DAILY [facility] Last Admin: 01/25/21 08:08 Dose: 40 mg Documented by: Famotidine (Famotidine 20 Mg Tab) 20 mg PO BID [facility] Last Admin: 01/25/21 08:08 Dose: 20 mg Documented by: Fluoxetine HCl (Fluoxetine 20 Mg Cap) 20 mg PO DAILY [facility] Last Admin: 01/25/21 08:04 Dose: 20 mg Documented by: Remdesivir 100 mg/ Sodium (Chloride) 100 mls @ 100 mls/hr IV BEDTIME [facility] Stop: 01/25/21 21:59 Last Admin: 01/24/21 20:14 Dose: 100 mls/hr Documented by: Ceftriaxone Sodium 2 gm/ (Sodium Chloride) 100 mls @ 200 mls/hr IV Q24H [facility] Stop: 01/25/21 22:29 Last Admin: 01/24/21 21:18 Dose: 200 mls/hr Documented by: Magnesium Hydroxide (Magnesium Hydroxide 400 Mg/5 Ml Susp 30 Ml Cup) 30 ml PO Q12H PRN PRN Reason: Constipation Melatonin (Melatonin 3 Mg Tab) 9 mg PO BEDTIME [facility] Last Admin: 01/24/21 20:15 Dose: 9 mg Documented by: Ondansetron HCl (Ondansetron 4 Mg/2 Ml Sdv) 4 mg IV Q4H PRN PRN Reason: Nausea/Vomiting Last Admin: 01/21/21 23:27 Dose: 4 mg Documented by: Tamsulosin HCl (Tamsulosin 0.4 Mg Cap.Er) 0.4 mg PO DAILY [facility] Last Admin: 01/25/21 08:07 Dose: 0.4 mg Documented by: Zinc Sulfate (Zinc Sulfate 220 Mg Cap) 220 mg PO DAILY [facility] Last Admin: 01/25/21 08:07 Dose: 220 mg Documented by: Discontinued Medications Amlodipine Besylate (Amlodipine 5 Mg Tab) 10 mg PO DAILY [facility] Last Admin: 01/22/21 08:19 Dose: 10 mg Documented by: Atorvastatin Calcium (Atorvastatin 20 Mg Tab) 20 mg PO DAILY [facility] Ceftriaxone Sodium (Ceftriaxone 1 Gm Advvial) Confirm Administered Dose 1 gm IV .STK-MED ONE Stop: 01/21/21 22:04 Last Admin: 01/21/21 22:11 Dose: 1 gm Documented by: Sodium Chloride (Normal Saline) 1,000 mls @ 100 mls/hr IV ASDIRECTED [facility] Last Admin: 01/21/21 19:52 Dose: 100 mls/hr Documented by: Ceftriaxone Sodium 1 gm/ (Sodium Chloride) 100 mls @ 200 mls/hr IV Q24H [facility] Last Admin: 01/21/21 22:12 Dose: 200 mls/hr Documented by: Azithromycin 500 mg/ Sodium (Chloride) 250 mls @ 250 mls/hr IV Q24H [facility] Last Admin: 01/21/21 23:20 Dose: 250 mls/hr Documented by: Sodium Chloride (Normal Saline) Confirm Administered Dose 100 mls @ as directed .ROUTE .[facility] ONE Stop: 01/21/21 22:04 Last Admin: 01/21/21 23:34 Dose: Not Given Documented by: Remdesivir 200 mg/ Sodium (Chloride) 250 mls @ 250 mls/hr IV ONETIME ONE Stop: 01/21/21 22:39 Last Admin: 01/22/21 00:56 Dose: 250 mls/hr Documented by: Ceftriaxone Sodium 1 gm/ (Sodium Chloride) 100 mls @ 200 mls/hr IV Q24H [facility] Azithromycin 500 mg/ Sodium (Chloride) 250 mls @ 250 mls/hr IV Q24H [facility] Stop: 01/23/21 22:59 Last Admin: 01/23/21 21:27 Dose: 250 mls/hr Documented by: Methylprednisolone Sodium Succinate (Methylprednisolone Sodium Succinate 125 Mg/2 Ml Sdv) 125 mg IVPUSH ONETIME ONE Stop: 01/21/21 21:50 Last Admin: 01/21/21 22:10 Dose: 125 mg Documented by: Simvastatin (Simvastatin 10 Mg Tab) 10 mg PO BEDTIME [facility] - Exam Quality Assessment: Supplemental Oxygen (1L), DVT Prophylaxis. No: Urine Cath eter General: Alert, Oriented, Cooperative, No Acute Distress HEENT: Pupils Equal, Pupils Reactive, Mucous Membr. Moist/[place] Neck: Supple, Trachea Midline Lungs: Normal Respiratory Effort, Decreased Breath Sounds Cardiovascular: Regular Rate, Regular Rhythm GI/Abdominal Exam: Normal Bowel Sounds, Soft, Non-Tender, No Distention (Male) Exam: Deferred Back Exam: Normal Inspection, Full Range of Motion Extremities: Normal Inspection, Normal Range of Motion, Non-Tender, No Pedal Edema, Normal Capillary Refill Peripheral Pulses: 2+: Radial (L), Radial (R), Dorsalis Pedis (L), Dorsalis Pedis (R) Skin: Warm, Dry, Intact Neurological: No New Focal Deficit Psy/Mental Status: Alert, Normal Affect, Normal Mood - Patient Data Lab Results Last 24 hrs: Laboratory Results - last 24 hr 01/25/21 01/25/21 01/25/21 Range/Units 04:48 04:48 04:48 WBC 8.91 (4.23-9.07) K/mm3 RBC 4.72 (4.63-6.08) M/mm3 Hgb 13.5 L (13.7-17.5) gm/dl Hct 40.6 (40.1-51.0) % MCV 86.0 (79.0-92.2) fl MCH 28.6 (25.7-32.2) pg MCHC 33.3 (32.2-35.5) g/dl RDW Std Deviation 42.2 (35.1-43.9) fL Plt Count 285 (163-337) K/mm3 MPV 9.8 (9.4-12.3) fl Neut % (Auto) 86.5 H (34.0-67.9) % Lymph % (Auto) 6.3 L (21.8-53.1) % Garrard % (Auto) 7.0 (5.3-12.2) % Eos % (Auto) 0 L (0.8-7.0) Baso % (Auto) 0.0 L (0.1-1.2) % Neut # (Auto) 7.71 H (1.78-5.38) K/mm3 Lymph # (Auto) 0.56 L (1.32-3.57) K/mm3 [place]arrard # (Auto) 0.62 (0.30-0.82) K/mm3 Eos # (Auto) 0.00 L (0.04-0.54) K/mm3 Baso # (Auto) 0.00 L (0.01-0.08) K/mm3 Manual Slide Review Abnormal smear D-Dimer, Quantitative 0.70 H (0.19-0.50) mg/L Sodium 145 (136-145) mEq/L Potassium 4.1 (3.5-5.1) mEq/L Chloride 108 H (98-107) mEq/L Carbon Dioxide 27 (21-32) mEq/L Anion Gap 14.1 (5-15) BUN 22 H (7-18) mg/dL Creatinine 0.9 (0.7-1.3) mg/dL Est Cr Clr Drug Dosing 89.00 mL/min Estimated GFR (MDRD) > 60 (>60) mL/min BUN/Creatinine Ratio 24.4 H (14-18) Glucose 164 H (80-115) mg/dL Calcium 8.5 (8.5-10.1) mg/dL Phosphorus 3.9 (2.6-4.7) mg/dL Magnesium 2.2 (1.8-2.4) mg/dl Total Bilirubin 0.4 (0.2-1.0) mg/dL AST 34 (15-37) U/L ALT 111 H (16-63) U/L Alkaline Phosphatase 46 (46-116) U/L C-Reactive Protein 1.5 H* (<1.0) mg/dL Total Protein 6.2 L (6.4-8.2) g/dl Albumin 2.5 L (3.4-5.0) g/dl Globulin 3.7 gm/dL Albumin/Globulin Ratio 0.7 L (1-2) Result Diagrams: 01/25/21 04:48 01/25/21 04:48 [place] Results Last 24 hrs: Microbiology 01/21/21 20:14 Aerobic Blood Culture - Preliminary Blood - Venous - Lab Draw NO GROWTH AFTER 3 DAYS Anaerobic Blood Culture - Preliminary NO GROWTH AFTER 3 DAYS 01/21/21 20:04 Aerobic Blood Culture - Preliminary Blood - Venous NO GROWTH AFTER 3 DAYS Anaerobic Blood Culture - Preliminary NO GROWTH AFTER 3 DAYS Sepsis Event Note - Evaluation Sepsis Screening Result: No Definite Risk - Focused Exam Vital Signs: Vital Signs Temp Pulse Resp BP Pulse Ox 01/25/21 08:05 119/71 01/25/21 07:54 98.1 F 64 20 119/71 92 L 01/25/21 04:13 98.4 F 60 18 120/71 94 L - Problem List & Annotations (1) Hypoxia SNOMED Code(s): 341944899 Code(s): R09.02 - HYPOXEMIA Status: Acute Priority: High Current Visit: Yes (2) Pneumonia due to COVID-19 virus SNOMED Code(s): 861651872955454077 Code(s): U07.1 - COVID-19; J12.82 - PNEUMONIA DUE TO CORONAVIRUS DISEASE 2019 Status: Acute Priority: High Current Visit: Yes (3) HTN (hypertension) SNOMED Code(s): 19969487 Code(s): I10 - ESSENTIAL (PRIMARY) HYPERTENSION Status: Chronic Priority: Medium Current Visit: No Qualifiers: Hypertension type: unspecified Qualified Code(s): I10 - Essential (primary) hypertension (4) HLD (hyperlipidemia) SNOMED Code(s): 40990634 Code(s): E78.5 - HYPERLIPIDEMIA, UNSPECIFIED Status: Chronic Priority: Low Current Visit: No Qualifiers: Hyperlipidemia type: unspecified Qualified Code(s): E78.5 - Hyperlipidemia, unspecified (5) Prostate disorder SNOMED Code(s): 29815622 Code(s): N42.9 - DISORDER OF PROSTATE, UNSPECIFIED Status: Chronic Priority: Low Current Visit: No (6) Former smoker SNOMED Code(s): 8425386 Code(s): Z87.891 - PERSONAL HISTORY OF NICOTINE DEPENDENCE Status: Chronic Priority: Low Current Visit: No (7) Asymptomatic bacteriuria SNOMED Code(s): 933853047 Code(s): R82.71 - BACTERIURIA Status: Acute Priority: Medium Current Visit: Yes - Problem List Review Problem List Initiated/Reviewed/Updated: Yes - Plan Plan:: Assessment - 01/22/21 (admitted late 01/21/21) * 60-year-old male presents to our ED with worsening Covid symptoms. * Lead diagnosed with Covid 9 days ago and has had worsening shortness of breath since then * History of HTN, HLD, prostate disorder. Is a former smoker. * Twelve-lead EKG shows sinus rhythm at 81 bpm with T wave inversion in 3, aVF, V3 through V5. * Chest x-ray shows increased density on both sides of the chest worse on left compatible with bilateral Covid pneumonia. * Labs in ED and on floor: * WBC 6.28-->4.34 * Hemoglobin 14.3-->14.4 * Platelet 209,000-->224,000 * Neutrophils 79% but no bandemia-->85% * D-dimer 0.51-->0.48 * Sodium 140-->143 * Potassium 3.1-->4.2 * Chloride 102-->106 * Carbon dioxide 24-->27 * Anion gap 17.1-->14.2 * BUN 22-->17, creatinine 1.1-->1.0, GFR greater than 60--> Greater than 60 * Glucose 113-->174 * Calcium 8.7-->8.5 * Magnesium 2.0-->2.4 * Total bilirubin 0.7-->0.4 * AST 75-->63, ALT 86-->81, alkaline phosphatase 51-->41 * CK 714 * Troponin less than 0.017 * Albumin 3.1-->2.9 * CRP 11.6 * Lipase 82 * TSH 3.350 * proBNP 57 * UA negative however trace ketones, 10-20 hyaline casts, 10-20 WBCs, rare WBC clumps, many bacteria and many mucus noted * SARS-CoV-2 RNA positive * ABG obtained in left radial: pH 7.47, PCO2 32.5, PO2 49.0, HCO3 of 23.5, O2 saturation 85.2, base excess 1.0, A-a gradient 60, obtained on room air. * Patient given 125 mg Solu-Medrol, Rocephin 1 g, 500 mg azithromycin in ED. * Subsequently admitted to the medical floor inpatient with telemetry for management of COVID-19 pneumonia. 01/23/2021 Hypoxia Pneumonia due to COVID-19 virus Former smoker * O2 as needed - goal saturations 88-95% * Azithromycin 500mg - Day 12/23 * Rocephin 2gm - Day 12/25 * Remdisivir - day 12/25 * Dexamethasone 6mg - Day 12/30 * IS/Acapella * Prone whenever able * Ambulate * IS/Acapella * RT consultation * Albuterol/duonebs * Repeat CXR as indicated * Daily labs as ordered * Will hold off PT/OT for now * Daily ASA * Vitamin D supplementation * Zinc supplementation * Melatonin at bedtime * Blood cultures negative after 2 days * May need high flow nasal cannula if not able to maintain oxygen saturations Asymptomatic bacteriuria * No treatment at this time * Already receiving abx for Covid-19 as above. * On Rocephin HTN (hypertension) HLD (hyperlipidemia) Prostate disorder * No acute concerns * Monitor vital signs * Home medications as ordered 01/24/2021 Hypoxia Pneumonia due to COVID-19 virus Former smoker * Patient is improving * O2 as needed - goal saturations 88-95%; able to decrease to of 3 to 4 L/min * Azithromycin 500mg -completed * Rocephin 2gm - Day 01/25 * Remdisivir - day 01/25 * Dexamethasone 6mg - Day 01/30 * IS/Acapella * Continue encouraging proning * Ambulate * RT consultation * Albuterol/duonebs * Repeat CXR as indicated * Daily labs as ordered * PT OT consult for tomorrow * Daily ASA * Vitamin D supplementation * Zinc supplementation * Melatonin at bedtime * Blood cultures negative after 3 days Asymptomatic bacteriuria * No treatment at this time * Already receiving abx for Covid-19 as above. * On Rocephin HTN (hypertension) HLD (hyperlipidemia) Prostate disorder * No acute concerns * Monitor vital signs * Home medications as ordered 01/25/2021 Hypoxia Pneumonia due to COVID-19 virus Former smoker * Patient continues to do well * O2 as needed - goal saturations 88-95%; Down to 1L o2 today * Azithromycin 500mg -completed * Rocephin 2gm - Day 02/24 * Remdisivir - day 02/24 * Dexamethasone 6mg - Day 03/01 * IS/Acapella * Continue encouraging proning * Ambulate * RT consultation * Albuterol/duonebs * Repeat CXR as indicated * Daily labs as ordered * PT OT consult for tomorrow * Daily ASA * Vitamin D supplementation * Zinc supplementation * Melatonin at bedtime * Blood cultures negative after 3 days so far Asymptomatic bacteriuria * No treatment at this time * Already receiving abx for Covid-19 as above. * On Rocephin HTN (hypertension) HLD (hyperlipidemia) Prostate disorder * No acute concerns * Monitor vital signs * Home medications as ordered Code Status: Full Code PCP: Dr. Olsen DVT Prophylaxis: Lovenox Social: Patient resides with who is also COVID-19 positive and hospitalized Disposition: Patient admitted for management of COVID-19. LOS anticipated at least 5 days for COVID treatment. Likely discharge tomorrow pending continued improvement/stability. LOS >96HRs for COVID-19 treatment.
[2021-01-25] MEDS: Melatonin 3 MG Tab PO SCH (20:19)
[2021-01-25] MEDS: REMDESIVIR 100 MG in Sodium Chloride 0.9% 100 ML IV SCH (20:19)
[2021-01-25] MEDS: cefTRIAXone 2 GM in Sodium Chloride 0.9% 100 ML IV SCH (21:40)
[2021-01-26] MEDS: Enoxaparin 40 MG/0.4 ML Syringe SUBCUT SCH (08:40)
[2021-01-26] MEDS: Aspirin 325 MG Tab.EC PO SCH (08:41)
[2021-01-26] MEDS: Famotidine 20 MG Tab PO SCH (08:41)
[2021-01-26] MEDS: amLODIPine 10 MG Tab PO SCH (08:41)
[2021-01-26] MEDS: Cholecalciferol (Vitamin D3) 5,000 UNIT Cap PO SCH (08:41)
[2021-01-26] MEDS: Dexamethasone 4 MG Tab PO SCH (08:42)
--- NOTE | 2021-01-26 08:42 | PCM.DCSUM1 ---
Discharge Summary - Hospital Course HPI Initial Comments: This is a 60-year-old male who presents to ED in the evening of 01/21/2021 with concerns over low oxygen saturations and shortness of breath. Patient is accompanied by his who is having similar symptoms. Per the patient he was tested for Covid approximately 9 days prior and was positive. Since that time he is developed worsening shortness of breath. Denies any recent fevers or risk factors. He is hypertensive. Does have a history of cigarette smoking in the past and some prior prostate problems but no prostate cancer. In the ED twelve-lead EKG is obtained showing a sinus rhythm at 81 bpm with T wave inversion in 3, aVF, and V3 through V5. There is no ischemic change noted. Temp is 36.3. Pulse 85. Respirations 18. Blood pressure 150/80. Pulse ox 90% on room air. Labs are obtained: WBC is 6.28. Hemoglobin 14.3. Platelet 209,000. Neutrophils are elevated 79%. There is no bandemia. Sodium is 140. Potassium is low at 3.1. Chloride 102. Carbon oxide 24. Anion gap is 17.1. BUN is 22. Creatinine 1.1. GFR greater than 60. Glucose 113. Calcium 8.7. Magnesium 2.0. Total bilirubin 0.7. AST is 75, ALT 86, alkaline phosphatase 51. CK is 714. Troponin less than 0.017. Protein 7.2. Albumin 3.1. Lipase 82. TSH is 3.350. proBNP is 57. UA is obtained and is negative however 1+ protein, 10-20 hyaline casts, 10-20 WBCs, rare WBC clumps, many bacteria, and many urine mucus are noted. ABGs obtained in the left radial with a pH of 7.47. PCO2 of 32.5. PO2 of 49.0. HCO3 is 23.5. O2 saturations 85.2. Base excess 1.0. A-a gradient is 60. This is obtained on room air. Patient is given 125 mg Solu-Medrol, 1 g Rocephin, 500 mg azithromycin in the ED. Chest x-ray is obtained and an increased density on both sides of the chest is noted worse on the left. Most likely due to bilateral Covid pneumonia. Patient subsequently admitted to the medical floor on telemetry for management of his COVID-19 pneumonia. He carries a history of HLD, HTN, prostate disorder. He is a full code. His PCP is Dr. Lovelace. Diagnosis: Stroke: No - Discharge Data Discharge Date: 01/26/21 (Admit date: 01/21/21) Discharge Disposition: Home, Self-Care 01 Condition: Good - Referral to Home Health Primary Care Physician: Jack Olsen MD - Discharge Diagnosis/Problem(s) (1) Hypoxia SNOMED Code(s): 126650203 ICD Code: R09.02 - HYPOXEMIA Status: Acute Priority: High Current Visit: Yes (2) Pneumonia due to COVID-19 virus SNOMED Code(s): 283707561026748418 ICD Code: U07.1 - COVID-19; J12.82 - PNEUMONIA DUE TO CORONAVIRUS DISEASE 2019 Status: Acute Priority: High Current Visit: Yes (3) HTN (hypertension) SNOMED Code(s): 33019941 ICD Code: I10 - ESSENTIAL (PRIMARY) HYPERTENSION Status: Chronic Priority: Medium Current Visit: No Qualifiers: Hypertension type: unspecified Qualified Code(s): I10 - Essential (primary) hypertension (4) HLD (hyperlipidemia) SNOMED Code(s): 61706834 ICD Code: E78.5 - HYPERLIPIDEMIA, UNSPECIFIED Status: Chronic Priority: Low Current Visit: No Qualifiers: Hyperlipidemia type: unspecified Qualified Code(s): E78.5 - Hyperlipidemia, unspecified (5) Prostate disorder SNOMED Code(s): 62719729 ICD Code: N42.9 - DISORDER OF PROSTATE, UNSPECIFIED Status: Chronic Priority: Low Current Visit: No (6) Former smoker SNOMED Code(s): 2687230 ICD Code: Z87.891 - PERSONAL HISTORY OF NICOTINE DEPENDENCE Status: Chronic Priority: Low Current Visit: No (7) Asymptomatic bacteriuria SNOMED Code(s): 017420437 ICD Code: R82.71 - BACTERIURIA Status: Acute Priority: Medium Current Visit: Yes - Patient Summary/Data Consults: Consultations 01/22/21 09:41 Respiratory Care Assess and Treatment [CONS] Routine Labs Pending at D/C: None Recommended Follow-up Testing/Procedures: Follow-up with primary care provider within 7-10 days of discharge, sooner if needed. -Recommend repeat CBC, CMP, magnesium at that visit. -Consider repeat D-Dimer -Consider repeat CXR at that time. Hospital Course: This is a 60-year-old male who was admitted to our hospital on late 01/21/2021 with worsening Covid symptoms. He reports that he was diagnosed with Covid 9 days prior to presenting to our ED and had been having worsening shortness of b reath ever since. Has a history of hypertension, HLD, prostate disorder. X-ray in ED showed increased density in both sides of the chest worse on the left compatible with bilateral Covid pneumonia. In the ED he was given 125 mg Solu- Medrol, 1 g Rocephin, and 500 mg azithromycin admitted to the medical floor for further management of his Covid symptoms. He completed 3 days of azithromycin, 5 days of Rocephin, 5 days of remdesivir, and 5 days of 6 mg dexamethasone. He was utilizing his incentive spirometry and Acapella and proning frequently. He was started on daily 325 mg aspirin, vitamin D supplementation, zinc supplementation, and melatonin at bedtime. Blood cultures remain negative throughout his stay. His oxygen saturations did tend to wax and wane but at his worst he was requiring 6 L via nasal cannula. He was weaned off oxygen prior to discharge however respiratory therapy worked with him and qualifies him for 3 L oxygen with activity. He was noted to have asymptomatic bacteremia on his UA and this was not pursued further. Patient was already receiving Rocephin. Prescription was sent for 325 mg aspirin daily, along with vitamin D and zinc supplementation. He never did have a white count while here and CRP trended downward. D-dimer was slowly trending up however was 0.90 today prior to discharge. Patient was advised to continue quarantining for 20 days per the state recommendation. He was advised to continue utilizing his incentive spirometry and Acapella after discharge for 1 to 2 weeks. He was also advised to prone whenever possible. Recommend PCP follow-up within 7 to 10 days of discharge, sooner if needed. Recommend repeat CBC, CMP, magnesium, and consider D-dimer at that time. Consider repeat chest x-ray during that visit as well. Patient discharged home today. All prior home medications were continued. - Patient Instructions Diet: Usual Diet as Tolerated Activity: As Tolerated Showering/Bathing: May Shower Notify Provider of: Fever, Increased Pain, Nausea and/or Vomiting Other/Special Instructions: Follow-up with primary care provider within 7-10 days of discharge, sooner if needed. Continue to utilize your incentive spirometer (clear/blue device you inhale through) and acapella (green tube you blow through) for 1-2 weeks or until symptoms resolve. Continue to prone whenever able. Wear your oxygen as directed. You should isolate/quarantine for a total of 20 days from when symptoms developed. You will likely be contacted by a patient case manager from the [facility]. Follow their directions. You completed your COVID treatment while here. No steroid or antibiotic will be pres cribed on discharge. Should symptoms return or worsen contact your primary care provider or return to the Emergency Department. - Discharge Plan *PRESCRIPTION DRUG MONITORING PROGRAM REVIEWED*: No *COPY OF PRESCRIPTION DRUG MONITORING REPORT IN PATIENT ALBA: No Prescriptions/Med Rec: Aspirin [Ecotrin EC] 325 mg PO DAILY #14 tab.ec Cholecalciferol (Vitamin D3) [Vitamin D3] 5,000 unit PO DAILY #20 cap Zinc Sulfate [Zincate] 220 mg PO DAILY #20 cap Home Medications: Home Meds FLUoxetine [PROzac] 20 mg PO DAILY 01/21/21 [History] Tamsulosin [Flomax] 1 tab PO DAILY 01/21/21 [History] amLODIPine [Norvasc] 10 mg PO DAILY 01/21/21 [History] atorvaSTATin Calcium [Atorvastatin Calcium] 20 mg PO DAILY 01/22/21 [History] Aspirin [Ecotrin EC] 325 mg PO DAILY #14 tab.ec 01/26/21 [Rx] Cholecalciferol (Vitamin D3) [Vitamin D3] 5,000 unit PO DAILY #20 cap 01/26/21 [Rx] Zinc Sulfate [Zincate] 220 mg PO DAILY #20 cap 01/26/21 [Rx] Oxygen Therapy Mode: Room Air Patient Handouts: COVID-19, How to Use an Incentive Spirometer, Smokeless Tobacco Information, Adult, Coronavirus Information 01/06/20, Prevent the Spread of COVID-19 if You Are Sick - [facility] Forms: ED Department Discharge Referrals: Jack Olsen MD [Primary Care Provider] - 02/02/21 11:30 am - Discharge Summary/Plan Comment DC Time >30 min.: Yes (45 mins ) - General Info Date of Service: 01/26/21 Admission Dx/Problem (Free Text: Admission Diagnosis/Problem Admission Diagnosis/Problem Hypoxia Functional Status: Reports: Pain Controlled, Tolerating Diet, Ambulating, Urinating, Incentive Spirometry, Other (Acapella ). Denies: New Symptoms - Review of Systems General: Reports: No Symptoms. Denies: Fever, Weakness, Fatigue, Malaise, Chills HEENT: Reports: No Symptoms. Denies: Headaches, Sore Throat Pulmonary: Reports: Shortness of Breath. Denies: Cough, Sputum, Wheezing Cardiovascular: Reports: Dyspnea on Exertion. Denies: Chest Pain, Palpitations, Edema Gastrointestinal: Reports: No Symptoms. Denies: Abdominal Pain, Constipation, Diarrhea, Nausea, Vomiting Genitourinary: Reports: No Symptoms. Denies: Pain Musculoskeletal: Reports: No Symptoms Skin: Reports: No Symptoms. Denies: Cyanosis Neurological: Reports: No Symptoms. Denies: Confusion, Pre-Existing Deficit, Difficulty Walking, Weakness, Gait Disturbance Psychiatric: Reports: No Symptoms - Patient Data Vitals - Most Recent: Last Vital Signs Temp 98.1 F 01/26/21 07:27 Pulse 84 01/26/21 07:27 Resp 20 01/26/21 07:27 BP 120/88 01/26/21 07:27 Pulse Ox 94 L 01/26/21 07:27 Weight - Most Recent: 228 lb 1.6 oz I&O - Last 24 hours: Intake & Output 01/25/21 01/26/21 01/26/21 22:59 06:59 14:59 Intake Total 540 600 Output Total 1100 400 Balance -560 200 Lab Results - Last 24 hrs: Laboratory Results - last 24 hr 01/26/21 01/26/21 01/26/21 Range/Units 05:24 05:24 05:24 WBC 8.72 (4.23-9.07) K/mm3 RBC 4.92 (4.63-6.08) M/mm3 Hgb 13.8 (13.7-17.5) gm/dl Hct 41.9 (40.1-51.0) % MCV 85.2 (79.0-92.2) fl MCH 28.0 (25.7-32.2) pg MCHC 32.9 (32.2-35.5) g/dl RDW Std Deviation 40.9 (35.1-43.9) fL Plt Count 292 (163-337) K/mm3 MPV 9.8 (9.4-12.3) fl Neut % (Auto) 83.7 H (34.0-67.9) % Lymph % (Auto) 8.3 L (21.8-53.1) % [place] % (Auto) 7.0 (5.3-12.2) % Eos % (Auto) 0.1 L (0.8-7.0) Baso % (Auto) 0.1 (0.1-1.2) % Neut # (Auto) 7.30 H (1.78-5.38) K/mm3 Lymph # (Auto) 0.72 L (1.32-3.57) K/mm3 [place] # (Auto) 0.61 (0.30-0.82) K/mm3 Eos # (Auto) 0.01 L (0.04-0.54) K/mm3 Baso # (Auto) 0.01 (0.01-0.08) K/mm3 Manual Slide Review Normal smear D-Dimer, Quantitative 0.97 H (0.19-0.50) mg/L Sodium 142 (136-145) mEq/L Potassium 4.0 (3.5-5.1) mEq/L Chloride 108 H (98-107) mEq/L Carbon Dioxide 25 (21-32) mEq/L Anion Gap 13.0 (5-15) BUN 22 H (7-18) mg/dL Creatinine 0.9 (0.7-1.3) mg/dL Est Cr Clr Drug Dosing 89.00 mL/min Estimated GFR (MDRD) > 60 (>60) mL/min BUN/Creatinine Ratio 24.4 H (14-18) Glucose 119 H (80-115) mg/dL Calcium 7.8 L (8.5-10.1) mg/dL Phosphorus 3.8 (2.6-4.7) mg/dL Magnesium 2.0 (1.8-2.4) mg/dl Total Bilirubin 0.5 (0.2-1.0) mg/dL AST 25 (15-37) U/L ALT 101 H (16-63) U/L Alkaline Phosphatase 47 (46-116) U/L C-Reactive Protein 0.8 (<1.0) mg/dL Total Protein 6.2 L (6.4-8.2) g/dl Albumin 2.5 L (3.4-5.0) g/dl Globulin 3.7 gm/dL Albumin/Globulin Ratio 0.7 L (1-2) MARZENA Results - Last 24 hrs: Microbiology 01/21/21 20:14 Aerobic Blood Culture - Preliminary Blood - Venous - Lab Draw NO GROWTH AFTER 4 DAYS Anaerobic Blood Culture - Preliminary NO GROWTH AFTER 4 DAYS 01/21/21 20:04 Aerobic Blood Culture - Preliminary Blood - Venous NO GROWTH AFTER 4 DAYS Anaerobic Blood Culture - Preliminary NO GROWTH AFTER 4 DAYS Med Orders - Current: Current Medications Acetaminophen (Acetaminophen 325 Mg Tab) 650 mg PO Q4H PRN PRN Reason: Pain (Mild 1-3)/fever Albuterol (Albuterol 6.7 Gm Inhaler) 0 gm INH Q4H PRN PRN Reason: SOB/Wheezing Last Admin: 01/23/21 20:25 Dose: 2 puff Documented by: Albuterol/Ipratropium (Albuterol/Ipratropium 3.0-0.5 Mg/3 Ml Neb Soln) 3 ml NEB Q4H PRN PRN Reason: Shortness Of Breath/wheezing Amlodipine Besylate (Amlodipine 10 Mg Tab) 10 mg PO DAILY [facility] Last Admin: 01/25/21 08:05 Dose: 10 mg Documented by: Aspirin (Aspirin 325 Mg Tab.Ec) 325 mg PO DAILY [facility] Last Admin: 01/25/21 08:07 Dose: 325 mg Documented by: Atorvastatin Calcium (Atorvastatin 20 Mg Tab) 20 mg PO DAILY [facility] Last Admin: 01/25/21 08:06 Dose: 20 mg Documented by: Cholecalciferol (Cholecalciferol (Vitamin D3) 5,000 Unit Cap) 5,000 unit PO DAILY [facility] Last Admin: 01/25/21 08:08 Dose: 5,000 unit Documented by: Dexamethasone (Dexamethasone 4 Mg Tab) 6 mg PO DAILY [facility] Stop: 01/30/21 09:01 Last Admin: 01/25/21 08:06 Dose: 6 mg Documented by: Docusate Sodium (Docusate Sodium 100 Mg Cap) 100 mg PO BID PRN PRN Reason: Constipation Enoxaparin Sodium (Enoxaparin 40 Mg/0.4 Ml Syringe) 40 mg SUBCUT DAILY [facility] Last Admin: 01/25/21 08:08 Dose: 40 mg Documented by: Famotidine (Famotidine 20 Mg Tab) 20 mg PO BID [facility] Last Admin: 01/25/21 20:19 Dose: 20 mg Documented by: Fluoxetine HCl (Fluoxetine 20 Mg Cap) 20 mg PO DAILY [facility] Last Admin: 01/25/21 08:04 Dose: 20 mg Documented by: Magnesium Hydroxide (Magnesium Hydroxide 400 Mg/5 Ml Susp 30 Ml Cup) 30 ml PO Q12H PRN PRN Reason: Constipation Melatonin (Melatonin 3 Mg Tab) 9 mg PO BEDTIME [facility] Last Admin: 01/25/21 20:19 Dose: 9 mg Documented by: Ondansetron HCl (Ondansetron 4 Mg/2 Ml Sdv) 4 mg IV Q4H PRN PRN Reason: Nausea/Vomiting Last Admin: 01/21/21 23:27 Dose: 4 mg Documented by: Tamsulosin HCl (Tamsulosin 0.4 Mg Cap.Er) 0.4 mg PO DAILY [facility] Last Admin: 01/25/21 08:07 Dose: 0.4 mg Documented by: Zinc Sulfate (Zinc Sulfate 220 Mg Cap) 220 mg PO DAILY [facility] Last Admin: 01/25/21 08:07 Dose: 220 mg Documented by: Discontinued Medications Amlodipine Besylate (Amlodipine 5 Mg Tab) 10 mg PO DAILY [facility] Last Admin: 01/22/21 08:19 Dose: 10 mg Documented by: Atorvastatin Calcium (Atorvastatin 20 Mg Tab) 20 mg PO DAILY [facility] Ceftriaxone Sodium (Ceftriaxone 1 Gm Advvial) Confirm Administered Dose 1 gm IV .[facility] Stop: 01/21/21 22:04 Last Admin: 01/21/21 22:11 Dose: 1 gm Documented by: Sodium Chloride (Normal Saline) 1,000 mls @ 100 mls/hr IV ASDIRECTED [facility] Last Admin: 01/21/21 19:52 Dose: 100 mls/hr Documented by: Ceftriaxone Sodium 1 gm/ (Sodium Chloride) 100 mls @ 200 mls/hr IV Q24H [facility] Last Admin: 01/21/21 22:12 Dose: 200 mls/hr Documented by: Azithromycin 500 mg/ Sodium (Chloride) 250 mls @ 250 mls/hr IV Q24H [facility] Last Admin: 01/21/21 23:20 Dose: 250 mls/hr Documented by: Sodium Chloride (Normal Saline) Confirm Administered Dose 100 mls @ as directed .[facility] .[facility] Stop: 01/21/21 22:04 Last Admin: 01/21/21 23:34 Dose: Not Given Documented by: Remdesivir 200 mg/ Sodium (Chloride) 250 mls @ 250 mls/hr IV ONETIME ONE Stop: 01/21/21 22:39 Last Admin: 01/22/21 00:56 Dose: 250 mls/hr Documented by: Remdesivir 100 mg/ Sodium (Chloride) 100 mls @ 100 mls/hr IV BEDTIME [facility] Stop: 01/25/21 21:59 Last Admin: 01/25/21 20:19 Dose: 100 mls/hr Documented by: Ceftriaxone Sodium 1 gm/ (Sodium Chloride) 100 mls @ 200 mls/hr IV Q24H [facility] Azithromycin 500 mg/ Sodium (Chloride) 250 mls @ 250 mls/hr IV Q24H [facility] Stop: 01/23/21 22:59 Last Admin: 01/23/21 21:27 Dose: 250 mls/hr Documented by: Ceftriaxone Sodium 2 gm/ (Sodium Chloride) 100 mls @ 200 mls/hr IV Q24H [facility] Stop: 01/25/21 22:29 Last Admin: 01/25/21 21:40 Dose: 200 mls/hr Documented by: Methylprednisolone Sodium Succinate (Methylprednisolone Sodium Succinate 125 Mg/2 Ml Sdv) 125 mg IVPUSH ONETIME ONE Stop: 01/21/21 21:50 Last Admin: 01/21/21 22:10 Dose: 125 mg Documented by: Simvastatin (Simvastatin 10 Mg Tab) 10 mg PO BEDTIME [facility] - Exam Quality Assessment: Reports: Supplemental Oxygen (1L), DVT Prophylaxis. Denies: Urine Catheter General: Reports: Alert, Oriented, Cooperative, No Acute Distress HEENT: Reports: Pupils Equal, Pupils Reactive, Mucous Membr. Moist/[place] Neck: Reports: Supple Lungs: Reports: Normal Respiratory Effort, Decreased Breath Sounds. Denies: Rhonchi, Wheezing Cardiovascular: Reports: Regular Rate, Regular Rhythm GI/Abdominal Exam: Normal Bowel Sounds, Soft, Non-Tender, No Distention (Male) Exam: Deferred Rectal (Males) Exam: Deferred Back Exam: Reports: Normal Inspection, Full Range of Motion Extremities: Normal Inspection, Normal Range of Motion, Non-Tender, No Pedal Edema, Normal Capillary Refill Skin: Reports: Warm, Dry, Intact Neurological: Reports: No New Focal Deficit Psy/Mental Status: Reports: Alert, Normal Affect, Normal Mood
[2021-01-26] MEDS: Zinc Sulfate 220 MG Cap PO SCH (08:44)
[2021-01-26] MEDS: Tamsulosin 0.4 MG Cap.ER PO SCH (08:44)
[2021-01-26] MEDS: FLUoxetine 20 MG Cap PO SCH (08:44)
[2021-01-26] MEDS: atorvaSTATin 20 MG Tab PO SCH (08:45)
[2021-01-26] MEDS: cefTRIAXone 1 GM AdvVial IV ONE (08:59)
== END 2021-01-26 09:53 | disposition home or self-care (01) | DRG 137 ==
LOC: JD.ED 18:13 → JD.MS 22:12
PROVIDERS: ADMIT Family Medicine; ATTEND Family Medicine
PROC: 8E0ZXY6 Isolation (ICD-10-PCS; principal; 2021-01-21)
PROC: XW033E5 Introduction of Remdesivir Anti-infective into Peripheral Vein, Percutaneous Approach, New Technology Group 5 (ICD-10-PCS; principal; 2021-01-21)
DX: U07.1 COVID-19 (principal); J12.82 Pneumonia due to coronavirus disease 2019; E78.5 Hyperlipidemia, unspecified; I10 Essential (primary) hypertension; N42.9 Disorder of prostate, unspecified; Z87.891 Personal history of nicotine dependence; R82.71 Bacteriuria; Z79.82 Long term (current) use of aspirin; Z79.899 Other long term (current) drug therapy; F41.9 Anxiety disorder, unspecified; Z90.49 Acquired absence of other specified parts of digestive tract; Z90.89 Acquired absence of other organs
CPT/HCPCS: 36415; 36600; 71045; 71045-26; 80053; 81001; 82306; 82550; 82803; 83690; 83735; 83880; 84100; 84443; 84484; 85007; 85025; 85027; 85379; 86140; 87040; 93005; 93010; 94640; 94667; 94668; 94761; 94762; 99222; 99232; 99233; 99239; 99283; 99285-25; A9270-GY; J0456; J0696; J1650; J2405; J2930; J7030; J7050; J8540; U0002

== ENCOUNTER 2024-11-06 19:17 | Emergency (ER) | payer BC, MEDICARE ==
[2024-11-06] MEDS: Sodium Chloride 0.9% 1,000 ML IV ONE (20:04)
[2024-11-06 20:09] LABS: BASOPHILS PERCENT AUTO 0.2 % (0.0-1.0); EOSINOPHILS PERCENT AUTO 0.2 % (0.0-6.0); HEMOGLOBIN 15.2 gm/dl (14.0-18.0); IMMATURE GRAN ABSOLUTE AUTO 0.05 K/mm3 (0.00-0.05); IMMATURE GRAN PERCENT AUTO 0.5 % (0.0-0.4); LYMPHOCYTES ABSOLUTE AUTO 0.8 K/mm3 (1.0-4.8); LYMPHOCYTES PERCENT AUTO 7.5 % (24.0-44.0); MEAN CORPUSCULAR HEMOGLOBIN 28.1 pg (28.0-32.0); MEAN CORPUSCULAR HGB CONC 33.8 g/dl (32.0-36.0); MEAN CORPUSCULAR VOLUME 83.3 fl (83.0-99.0); MEAN PLATELET VOLUME 9.5 fl (9.4-12.4); MONOCYTES ABSOLUTE AUTO 0.8 K/mm3 (0.0-0.8); MONOCYTES PERCENT AUTO 7.2 % (0.0-8.0); NEUTROPHILS ABSOLUTE AUTO 9.3 K/mm3 (1.8-7.7); NEUTROPHILS PERCENT AUTO 84.4 % (41.0-71.0); PLATELET COUNT,PLT 184 K/mm3 (150-400); WHITE BLOOD CELL COUNT,WBC 11.06 K/mm3 (3.9-11.3)
[2024-11-06 20:28] LABS: A/G RATIO 1.2 (1-2); ALANINE AMINOTRANSFERASE,ALT 32 U/L (16-63); ALBUMIN 3.9 g/dl (3.4-5.0); ALKALINE PHOSPHATASE 71 U/L (46-116); ANION GAP 16.4 (5-15); ASPARTATE AMNIOTRANSFERASE,AST 16 U/L (15-37); BILIRUBIN TOTAL 0.9 mg/dL (0.2-1.0); BLOOD UREA NITROGEN,BUN 14 mg/dL (7-18); BUN/CREATININE RATIO 11.7 (14-18); C-REACTIVE PROTEIN 0.15 mg/dL (<0.30); CALCIUM 8.7 mg/dL (8.5-10.1); CARBON DIOXIDE,CO2 27 mEq/L (21-32); CHLORIDE,CL 102 mEq/L (98-107); CREATININE 1.2 mg/dL (0.7-1.3); ESTIMATED GFR 67 mL/min (>60); GLUCOSE RANDOM 113 mg/dL (70-99); LIPASE 16 U/L (16-77); POTASSIUM,K 3.4 mEq/L (3.5-5.1); PROTEIN TOTAL,TP 7.1 g/dl (6.4-8.2); SODIUM,NA 142 mEq/L (136-145)
[2024-11-06 20:39] LABS: APPEARANCE,URINE CLEAR (Clear); BILIRUBIN,URINE NEGATIVE (Negative); COLOR,URINE YELLOW (Yellow); GLUCOSE,URINE NEGATIVE (Negative); KETONES,URINE NEGATIVE (Negative); LEUKOCYTE ESTERASE,URINE NEGATIVE (Negative); NITRITE,URINE NEGATIVE (Negative); OCCULT BLOOD,URINE 2+ (Negative); PROTEIN,URINE NEGATIVE (Negative); UROBILINOGEN,URINE 0.2 (0.2-1.0)
[2024-11-06 20:46] LABS: BACTERIA,URINE FEW /hpf (FEW); MUCUS,URINE FEW /hpf (FEW); SQUAMOUS EPITHELIAL CELLS,UR 0-5 /hpf (0-5); WBC,URINE 0-5 /hpf (0-5)
[2024-11-06] MEDS: Iopamidol 612 MG/ML 100 ML Bottle IVPUSH ONE (21:11)
== END 2024-11-06 23:19 | disposition home or self-care (01) ==
LOC: JD.ED 19:17
DX: N13.2 Hydronephrosis with renal and ureteral calculous obstruction (principal); I10 Essential (primary) hypertension; E78.00 Pure hypercholesterolemia, unspecified; Z79.82 Long term (current) use of aspirin; Z79.899 Other long term (current) drug therapy; Z86.16 Personal history of COVID-19; Z90.49 Acquired absence of other specified parts of digestive tract
CPT/HCPCS: 36415; 74177; 80053; 81001; 83690; 85025; 86140; 96360; 99285; J7030; Q9967; 99284